=== PATIENT | female | born 1975 | race Caucasian/White ===

== ENCOUNTER 2023-11-19 16:32 | Inpatient (IN) | payer BC, SELFPAY ==
[2023-11-19] VITALS (26 sets, daily range): BP systolic 114–172; BP diastolic 57–102; BMI 28.8; BMI 32.8
--- NOTE | 2023-11-19 11:29 | ED.GENMED ---
History of Present Illness
General
Chief Complaint: Chest Problem
Source: patient
Exam Limitations: none
Time Seen by Provider: 11/19/23 11:20
Travel History
Have you had any contact with someone who has COVID-19?: No
Do you have any symptoms of coronavirus? Fever > 100 degrees, chills, cough, shortness of breath, sore throat, loss of taste or smell, muscle aches, or headache?: No
History of Present Illness
History of Present Illness:
See MDM
Past History
Past History
ED Past Medical History: Asthma and GERD
ED Past Surgical History: None
Social History
Tobacco: Non-smoker
Personal:
Living: with family
Family History
Family History: Negative Early CAD
Phy Exam
Physical Exam
Physical Exam:
See MDM
Course
Orders/Labs/Results
Orders:
Orders
11/19/23 10:15
ECG [Electrocardiogram (*1)] Urgent
Reason for Study: Chest Pain
EKG- Treatment ONCE
11/19/23 11:28
Prednisone [Deltasone] 50 mg PO NOW STA
CR Chest - 2 Views Urgent
Comment:
Reason For Exam: SOB, cough, Wheeze
11/19/23 12:18
Complete Blood Count/With Diff Urgent
Comprehensive Metabolic Panel Urgent
Glycohemoglobin (HgbA1c) Urgent
HCG, Serum Qualitative Screen Urgent
Comment: ADD ON
Troponin I Urgent
11/19/23 13:34
Aspirin Chewable [Low Strength Aspirin] 324 mg PO NOW STA
Nitroglycerin Sublingual [Nitrostat (Sublingual)] 0.4 mg SL [id number] PRN
11/19/23 13:50
Heparin 4,000 units IV NOW STA
11/19/23 13:54
Echo 2D MMode Color/Doppler Urgent
Reason for Study: CP
11/19/23 13:56
PTT Urgent
Comment: Obtain baseline before beginning heparin infusion if not already collected
11/19/23 14:00
Heparin 52980 Units/250 ml 25,000 units in 250 ml IV PER PROTOCOL
Weight to be used for heparin protocol in kilograms (kg):: 88.451
Protocol:: Cardiac Tx/Acute Coronary
PTT Goal Range to be used:: PTT 73 to 111 seconds
Order type:: Initial
INITIAL Infusion Dose (UNITS/KG/hr) & then follow protocol:: 15 units/kg/hr
Infusion Dose in UNITS/hr & then follow protocol (UNITS/hr):: 1,350
INFUSION RATE in mL/hr & then follow protocol (mL/hr):: 13.5
PTT less than or equal to 64 seconds:: Increase rate by 200 units/hr (+ 2 mL/hr)
PTT 64.1 to 72.9 seconds:: Increase rate by 100 units/hr (+ 1 mL/hr)
PTT 73 to 111 seconds:: Target Range. No change in rate.
PTT 111.1 to 130.9 seconds:: Decrease rate by 100 units/hr (- 1 mL/hr)
PTT 131 to 199.9 seconds:: HOLD for 1 hr. Then decrease rate by 200 units/hr (- 2 mL/hr)
PTT greater than or equal to 200 seconds:: HOLD for 2 hrs & Notify Provider. Then decrease by 200 units/hr (-
2 mL/hr)
Lab follow-up:: Each change, PTT q6h until 2 consecutive are therapeutic. Then PTT
daily.
11/19/23 Dinner
Cholesterol Lowering
At Your Request: Full Participation
Cholesterol Lowering: Sodium, 2 Gram
11/19/23 15:22
Troponin I Urgent
11/19/23 15:42
DH LUMASON 5mL Routine
11/19/23 15:57
Verapamil Injectable [Isoptin/Verapamil Injection] 5 mg .ROUTE .STK-MED ONE
11/19/23 15:58
Heparin 1000 Units/500 ml [Heparin] 1,000 units in 500 ml .ROUTE .STK-MED
Heparin Sodium,Porcine/Ns/Pf [Heparin 2000 Units/1000 ml] 2,000 unit in 1,000 ml .ROUTE .STK-MED
Lidocaine HCl/Pf [Xylocaine-Mpf 1% Vial] 100 mg .ROUTE .STK-MED ONE
Nitroglycerin [Tridil] 1,500 mcg .ROUTE .STK-MED ONE
11/19/23 15:59
Admit/Transfer Patient As Directed
Co-Sign Provider:
Level of Care: Inpatient admission
Assign to:: IVU
Physician / Group: alexa
Diagnosis: NSTEMI
Reason for Hospitalization: NSTEMI
Expected length of stay greater than two midnights?: Yes
ELOS- Estimated Length of Stay in days: 4
I certify the patient meets the requirements for IP care: Yes
11/19/23 16:01
Code Status As Directed
Resuscitation Status: Full Code
11/19/23 16:22
Fentanyl Citrate/Pf [Sublimaze] 100 mcg .ROUTE .STK-MED ONE
Heparin 10,000 units .ROUTE .STK-MED ONE
Midazolam HCl [Versed] 2 mg .ROUTE .STK-MED ONE
Ondansetron Injectable [Zofran] 4 mg .ROUTE .STK-MED ONE
11/19/23 17:39
Albuterol [ProAIR HFA INHALER] 2 puff INH R Q4HPRN PRN
11/19/23 17:39
Heparin Protocol- PTT Orders As Directed
PTT per Heparin protocol: -Obtain CBC and baseline PTT - if not already collected.
-Obtain PTT 6 hours from start of infusion. Then, every 6 hours until 2 consecutive
PTT's are therapeutic. Then, PTT Daily.
-With each rate change, obtain PTT every 6 hours until 2 consecutive PTT's are
therapeutic. Then, PTT Daily.
Activity As Directed
Activity Level: Bedrest
INT (Intravenous Needle Therapy) As Directed
Comment: maintain peripheral IV access
Intake/ Output As Directed
Frequency: Per unit guidelines
Notify MD As Directed
Notify physician if: PTT is greater than or equal to 200.
Vital Signs As Directed
Frequency: q4h
Weight As Directed
Frequency: Weekly
11/19/23 18:00
Atorvastatin [Lipitor] 40 mg PO QPM
11/19/23 20:00
Metoprolol [Lopressor] 12.5 mg PO BID
11/20/23 05:49
Basic Metabolic Panel IN AM
Cardiovascular Evaluation IN AM
Complete Blood Count/With Diff IN AM
Troponin I IN AM
11/21/23 06:00
Complete Blood Count/No Diff Q2D
Comment: notify provider: Platelet count < 130,000 or decrease by 50% from baseline
11/23/23 06:00
Complete Blood Count/No Diff Q2D
Comment: notify provider: Platelet count < 130,000 or decrease by 50% from baseline
11/25/23 06:00
Complete Blood Count/No Diff Q2D
Comment: notify provider: Platelet count < 130,000 or decrease by 50% from baseline
11/27/23 06:00
Complete Blood Count/No Diff Q2D
Comment: notify provider: Platelet count < 130,000 or decrease by 50% from baseline
11/29/23 06:00
Complete Blood Count/No Diff Q2D
Comment: notify provider: Platelet count < 130,000 or decrease by 50% from baseline
12/01/23 06:00
Complete Blood Count/No Diff Q2D
Comment: notify provider: Platelet count < 130,000 or decrease by 50% from baseline
12/03/23 06:00
Complete Blood Count/No Diff Q2D
Comment: notify provider: Platelet count < 130,000 or decrease by 50% from baseline
12/05/23 06:00
Complete Blood Count/No Diff Q2D
Comment: notify provider: Platelet count < 130,000 or decrease by 50% from baseline
Abnormal Lab Results
11/19/23 11/19/23
12:18 15:22
Glucose 102 H mg/dl
(70-99)
Hemoglobin A1c 6.1 H %
(4.0-5.6)
Troponin I 0.713 H* ng/ml 0.603 H* ng/ml
11/19/23 12:18
11/19/23 12:18
Vital Signs
Initial and Last Documented VS:
Initial Vital Signs
Temp Pulse Resp BP Pulse Ox
98.2 F 98 20 172/99 100
11/19/23 10:10 11/19/23 10:10 11/19/23 10:10 11/19/23 10:10 11/19/23 10:10
Last Documented Vital Signs
Temp Pulse Resp BP Pulse Ox
98.0 F 89 15 144/66 98
11/20/23 12:03 11/20/23 12:00 11/20/23 08:45 11/20/23 08:39 11/20/23 08:15
MDM/Problems Addressed
Differential Diagnosis Includes:
HPI and MDM Narrative:
48-year-old female presenting with shortness of breath and cough. She is developing a central chest pain. Patient states it felt like a panic attack but she has never had pain this severe. Her child is getting over a viral illness with cough.
She is using her albuterol more frequently.
On evaluation, she is well-appearing nontoxic. Lungs are clear but there is evidence of a bronchospastic cough. Will start prednisone. Will obtain chest x-ray. Given exertional component, will obtain 1 troponin
Physical exam
General: Well appearing and non-toxic
HEENT: protecting airway
Neck: appears supple
CV: No evidence of cyanosis. Regular rate and rhythm
Resp: No accessory muscle use. Lungs clear. Bronchospastic cough
Abd: Non-distended
Extremities: No deformities. No leg edema
Neuro: alert
Psych: Normal affect
Skin: Intact
Problems Addressed including Acute and Chronic Conditions affecting care:
1. Bronchospastic cough
Acuity: acute
Prognosis: stable
Details: Will start prednisone and obtain chest x-ray
2. Chest pain
Acuity: acute
Prognosis: stable
Details: Will obtain troponin
Updates
Chest x-ray clear. At this time, troponin came back elevated at 0.7. Patient given aspirin and nitroglycerin. The chest discomfort is resolving with nitroglycerin. Given her exertional shortness of breath and elevated troponin, will start
heparin.
Cardiology will evaluate.
Differential Diagnosis (but not limited to): Costochondritis, bronchospasm, bronchitis, ACS
Testing considered: D-dimer but she is neither tachycardic nor hypoxic. No leg edema
Drug therapy (if applicable): OTC meds, please see d/c instruction regarding Rx drugs
2 PM Case rediscussed with cardiology after he evaluated the patient. Cardiology will perform echo and make the decision of emergent cardiac catheterization based on results.
Amount and/or Complexity of Data Reviewed
Clinical info obtained from: Patient
External data reviewed: N/A
Labs I independently reviewed (but not limited to): Elevated troponin
Radiology: X-ray independently reviewed: Chest x-ray clear
Pulse Ox: not hypoxic
EKG independently reviewed: Sinus rhythm, normal axis, no STEMI
Services Advisor: sinus rhythm
Critical Care: The high probability of a clinically significant, sudden or life threatening deterioration of the cardiovascular system(s) required my full and direct attention, intervention and personal management. The aggregate critical care time
was 33 minutes. This time is in addition to time spent performing reported procedures but includes the following:
[x] Data Review and interpretation
[x] Patient assessment and monitoring of vital signs
[x] Documentation
[x] Medication orders and management
Risk of Complication:
Social Determinants of health: Good social support
Discussed with other providers: Cardiology
Escalation of Care includes Admit/Obs: Given the elevated troponin and chest discomfort, patient requires admission
Occasional wrong word or 'sound a like' substitutions may have occurred due to the inherent limitations of voice recognition software. Read the chart carefully and recognize, using context, where substitutions have occurred.
*Critical Care Note
Total Time (30-74mins, 75-104mins- exclusive of procedures): 33 min
ED Attending Note
-
Portions of this chart may have been created with voice recognition software.� Occasional wrong word or��sound alike� substitutions may have occurred due to the inherent limitations of voice recognition software.
Discharge Plan
Departure
Patient Disposition: Admit
Date of Disposition: 11/19/23
Time of Disposition: 14:16
Admit to: Telemetry
Presentation/result/management discussed w/ accepting MD/DO: Delivery Tech
Discharge Problem:
REYES (dyspnea on exertion)
Interventions
Interventions:
*General Assessment Last Done: 11/19/23 11:43
*Neglect/Abuse Screening Last Done: 11/19/23 11:42
ED- Fall Risk Assessment Last Done: 11/19/23 11:43
*Nursing Disposition Last Done: 11/19/23 16:27
ED- Cardiac Assessment Last Done: 11/19/23 11:46
ED- Pulmonary Assessment Last Done: 11/19/23 11:46
Discharge Date and Time
Discharge Date/Time: 11/19/23 16:28
[2023-11-19] MEDS: DELTASONE 50 MG PO (11:39)
[2023-11-19 12:48] LABS: % Basophils 0.3 % (0-2); % Eosinophils 0.6 % (0-6); % Immature Granulocytes 0.3 % (0-0.5); % Monocytes 5.6 % (1.7-9.3); % Neutrophils 54.2 % (42.2-75.2); Absolute Lymphocytes 2.8 10^3/uL (1.2-3.4); Absolute Monocytes 0.4 10^3/uL (0.1-0.6); Absolute Neutrophils 3.9 10^3/uL (1.4-6.5); Hematocrit 37.3 % (37.0-47.0); Hemoglobin 12.9 g/dL (12.0-16.0); Mean Corp Hgb Conc. 34.6 g/dL (33.0-37.0); Mean Corpuscular Hgb 29.3 pg (27.0-31.0); Mean Corpuscular Volume 84.6 fL (81.0-99.0); Mean Platelet Volume 9.6 fL (7.4-10.4); Nucleated Red Blood Cells % 0 %; Platelet Count 329 10^3/uL (130-400); Red Blood Cell Count 4.41 10^6/uL (4.20-5.40); Red Cell Dist. Width 12.7 % (11.5-14.5); White Blood Cell Count 7.3 10^3/uL (4.8-10.8)
[2023-11-19 13:06] LABS: ALT (SGPT) 24 U/L (0-35); AST (SGOT) 28 U/L (14-36); Albumin 4.3 g/dl (3.5-5.0); Alkaline Phosphatase 100 U/L (38-126); Blood Urea Nitrogen 11 mg/dl (7-17); Calcium 9.6 mg/dl (8.4-10.2); Carbon Dioxide 27 mmol/L (22-30); Chloride 101 mmol/L (98-107); Estimated Creatinine Clearance > 125 ml/min; Glucose 102 mg/dl (70-99); Sodium 136 mmol/L (135-145); Total Bilirubin 0.5 mg/dl (0.2-1.3); Total Protein 7.5 g/dl (6.3-8.2); eGFR > 60.00
[2023-11-19 13:22] LABS: Troponin I 0.713 ng/ml
[2023-11-19 13:38] LABS: Potassium 4.4 mmol/L (3.5-5.1)
[2023-11-19] MEDS: NITROSTAT (SUBLINGUAL) 0.400000000000000022 MG SL ×3 (13:38→21:06)
[2023-11-19] MEDS: LOW STRENGTH ASPIRIN 324 MG PO (13:38)
--- NOTE | 2023-11-19 14:12 | W.PN.CD ---
Today's Communication / Plan
-
.
Impression / Plan
-
Impression: 48F with CP and abnormal troponin. Several days of chest discomfort that is worse with laying flat/left side and better sitting up. But relieved with SL NTG. Finally, she has been under an extraordinary amount of stress and having
'daily' panic attacks for two weeks. EKG is nonspecific
Plan:
CP
- Interesting story with features concerning for pericarditis (positional), Takotsubo (stress) or just obstructive CAD. Her symptoms, however, don't neatly match any of these diagnoses - for example, the EKG is not consistent with pericarditis or
Takotsubo.
- Urgent echocardiogram now
- Treat as ACS (ASA, UFH, statin) until proven otherwise
- Noncardiac causes of chest pain and troponin are possible but seem unlikely. There is no hypoxia or tachycardia to suggest PE. The time course and pain are not typical for acute aortic event
- She may require LHC
- check lipid panel
Asthma
GERD
Subjective: Dictated
Physical Exam
Vital Signs/Labs
Vital Signs
Temp Pulse Resp BP Pulse Ox
36.8 C 96 30 155/90 99
11/19/23 10:10 11/19/23 13:30 11/19/23 13:30 11/19/23 13:00 11/19/23 13:30
11/18/23 11/19/23 11/20/23
06:59 06:59 06:59
Actual Weight 195 lb
11/19/23 12:18
11/19/23 12:18
LAB Results
11/19/23
12:18
Troponin I 0.713 H*
Data Reviewed
-
Date of Service: November 19, 2023
[2023-11-19 14:26] LABS: APTT 28.7 Sec (23.4-35.0)
[2023-11-19] MEDS: HEPARIN 25000 UNITS/250 ML IV ×2 (14:32→23:37)
[2023-11-19] MEDS: HEPARIN 4000 UNITS IV (14:39)
[2023-11-19 15:58] LABS: Troponin I 0.603 ng/ml
[2023-11-19 17:01] LABS: HCG, Serum Qualitative Screen Negative
--- NOTE | 2023-11-19 17:34 | CONSULT.CT ---
Addendum entered and electronically signed by Félix Powell MD 11/20/23 16:06:
I saw and examined the patient.
The PA's note was reviewed and I agree with the note.
Comment:
CARDIAC SURGERY ATTENDING:
I have personally reviewed this patient's case and available imaging. I spoke w/ Mrs. Rush and her at her bedside this afternoon. Her mother was present via speaker phone. We discussed her coronary pathology and the various treatment
options available. In particular, I discussed what surgical intervention and recovery would involve. We discussed that surgery would offer no survival advantage over PCI/stenting, but would potentially result in less future interventions than
PCI/stenting. We discussed the natural history of CAD. I also discussed that the potential for future surgical intervention, if necessary, would not be compromised should she chose PCI/stenting at present. All questions were answered to the best
of my abilities. The patient would like to proceed with PCI/stenting. I shared her decision with my interventional cardiology colleagues.
Thank you for the opportunity to participate in the care of this patient.
Call with any questions or concerns.
Félix Powell M.D.
[phone]
Original Note:
Consultation
-
Date/Time Consultation Requested: 11/19/23 1709
Date/Time Consultation Performed: 11/19/23 1535
Requesting Provider: Dominic DUQUE
Performing Provider: Michael Rebolledo Md
Reason for Consultation: CT surgery Eval.
Patient History
Physicians
Family Physician: Mell Ponce
Outpatient Electronics Engineering Manager: Bunny Reid
Inpatient Electronics Engineering Manager: Bunny Reid
History of Present Illness
48-year-old female with past medical history of presented to [facility] on 11/18 with shortness of breath and cough for several days. however, she c/o severeal panic attacks that maybe have been cardiac episodes as she reflects on her
symptoms. She then complained of developing central chest pain and stated that it felt like a panic attack but has never had pain this severe. The CP would radiate to the jaw/teeth, and eyes She does complain of recent sick exposure from her child
and extra stress. 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 Troponins were obtained while in the ER and they were elevated at 0.7. She was given aspirin and nitro and was started on a heparin drip. An echocardiogram was performed which showed a
LVEF of 55-60% with mild hypokinesis of the mid to apical anteroseptal pillai and mid inferior septal wall. She was then taken to the cardiac Video Effects Editor in which multivessel disease was found and CT surgery was consulted.
Past Medical History
Past Medical History: Asthma and GERD
anxiety
Past Surgical History
D+E termination
Breast lift/ excess skin removal
Dental History
crowns
Family History
Family Medical History: CAD and Other (afib)
Social History
Alcohol: Occasional
Drug: Marijuana (daily)
Tobacco: Former Smoker (quit 20 years ago)
Personal:
Living: With Spouse
Employment: Employed
Allergies
Allergy/AdvReac Type Severity Reaction Status Date / Time
aspirin Allergy Pharmacy Verified 11/19/23 10:15
to Review
fluticasone propionate Allergy Unknown Verified 11/19/23 10:15
[From Advair Diskus]
salmeterol xinafoate Allergy Unknown Verified 11/19/23 10:15
[From Advair Diskus]
Home Medications
�Medication �Instructions �Recorded �Confirmed �Type
Medical Marijuana 1 gummy PO HSPRN PRN anxiety 11/19/23 11/19/23 History
Medical Marijuana 20 inh inhalation QPMPRN PRN 11/19/23 11/19/23 History
anxiety
albuterol sulfate 90 mcg/actuation 2 puff inhalation R Q4HPRN PRN 11/19/23 11/19/23 History
aerosol inhaler sob/wheezing
ibuprofen 200 mg tablet (Motrin IB) 400 mg PO DAILYPRN PRN mild pain 11/19/23 11/19/23 History
tetrahydrozoline 0.05 % eye drops 1 - 2 drp BOTH EYES DAILYPRN PRN 11/19/23 11/19/23 History
(Visine) dry eyes
Review of Systems
-
History Source: Patient
General: Reports Fatigue
Respiratory: Reports SOB and Asthma
Cardiac: Reports Chest Pain and CAD
Abdomen/GI: Reports Abdominal Pain
: Reports No Symptoms
Musculoskeletal: Reports No Symptoms
Skin: Reports No Symptoms
Neurological: Reports Headaches
Vascular: Reports No Symptoms
Physical Exam
Vital Signs
Temp 98.2 F 11/19/23 10:10
Temp route: Oral 11/19/23 10:10
Pulse 95 11/19/23 17:19
Resp Rate 17 11/19/23 17:19
Blood pressure 141/73 11/19/23 17:19
Blood pressure extremity used: Left forearm 11/19/23 17:19
Position: Sitting 11/19/23 17:19
MAP (cuff-Gabby Monitor) 101 11/19/23 15:18
SaO2 98 11/19/23 17:19
Oxygen Mode of Delivery Room air 11/19/23 17:19
Acceptable pain level during hospitalization? 0 11/19/23 10:10
Can the patient verbally communicate their pain? Yes 11/19/23 17:19
Pain scale ratin 11/19/23 10:10
Actual Weight 88.451 kg 11/19/23 11:43
Body Mass Index (BMI) 28.8 11/19/23 11:43
Labs
11/19/23 12:18
11/19/23 12:18
APTT Cancelled 11/19/23 20:45
Troponin I 0.603 ng/ml H* 11/19/23 15:22
Exam
General: Well Developed and Well Nourished
HEENT: Normocephalic
Respiratory: Clear
Cardiac: S1/S2 and Regular Rhythm
GI: Soft
Rectal: Deferred by Provider
Skin: Warm and Dry
Neuro: AO x 3
Lymph: No Lymphadenopathy
Psych: Other (anxious)
Assessment / Plan
-
48-year-old female with past medical history listed above presented to [place]' emergency room with chest pain, shortness of breath and cough. She ruled in for an NSTEMI and was taken to the Cardiac Video Effects [facility] where a coronary vessel disease was
found. Therefore CT surgery was consulted for surgical evaluation.
#CAD
-Patient's case will be discussed with attending physician. Further details regarding surgical timing intervention will be determined after attending physicians full evaluation.
-Routine preoperative cardiothoracic surgery orders will be initiatedonce a surgical plan is developed
-STS risk stratification score will be calculated after preoperative testing is complete
-Continue heparin gtt per cardiology
#anxiety
- takes medical marijuana daily
- would start valium or ativan po
--- NOTE | 2023-11-19 18:00 | PTCARENOTE ---
Rec'd pt from labor contractor via stretcher at 1750- Rec'd pt awake alert and oriented. Sl tearful and admitted she was overwhelmed with the events of today. Admits to having significant underlying anxiety and normally takes medical marijuana- a
combination of THC and CBD mix to help her sleep. States she feels as if she has been 'off' for a few weeks but it got really bad last night with shortness of breath and chest discomfort. Currently denies pain or shortness of breath. Lungs are
clear. Monitor SR. + pulses. No edema. VS as documented. ABd is round and soft with + BS. Denies nausea. Denies need to void currently. Pt has her menses. Tampon in place. L arm IV site -NSS hung at 133 mls/hr to run over 3 hrs. Pt with R radial TR
band- rec'd pt with 9 mls in the band. Site wnl. Good CMS checks to distal extrem. No swelling, drainage, or hematoma. Per labor contractor band placed at 1700. per orders at 1800 3 mls taken out-site remains wnl. Complete CHG bath given. Repositioned.
at the bedside.
[2023-11-19] MEDS: IMDUR (EXTENDED RELEASE) 30 MG PO (18:13)
[2023-11-19] MEDS: NSS 1000 IV (18:13)
[2023-11-19] MEDS: LIPITOR 40 MG PO (18:13)
--- NOTE | 2023-11-19 18:19 | ITS.CL.CATH ---
Crew Boss - Catheterization
Cardiac Catheterization
Procedure Report:
LEFT HEART CATHETERIZATION
Date of Procedure: November 19, 2023
Referring: Bunny Reid
PROCEDURES:
1. Left heart catheterization, coronary angiogram.
2. Ultrasound-guided access
INDICATION: NSTEMI
ACCESS: Right radial artery, 6 Tamazight sheath, under ultrasound guidance
HEMODYNAMICS : (mmHg)
AO (s/d) : 121/80
LV (s/d) : 129/5
LVEDP : 8
CORONARY FINDINGS
DOMINANCE: Right
LEFT MAIN: The left main artery is a large-caliber vessel which gives rise to the left anterior descending artery and the left circumflex artery. There is minimal luminal irregularities.
LEFT ANTERIOR DESCENDING: The left anterior descending artery is a medium to large caliber vessel which gives rise to 1 major diagonal branch. There are 2 tandem lesions in the mid LAD, first 70% proximally and a 80 to 85% more distally. There is
also an area of tubular diffuse up to 70% stenosis in the distal LAD. Proximal portion of the diagonal branch also has a 70 to 75% smooth stenosis.
CIRCUMFLEX: The left circumflex artery is a medium caliber vessel which gives rise to 2 major obtuse marginal branches. OM1 is a small caliber vessel with smooth 40 to 50% stenosis in the proximal portion. Otherwise there is minimal luminal
irregularities.
RIGHT CORONARY ARTERY: The right coronary artery is a large-caliber, dominant vessel which gives rise to the right posterior descending artery and the right posterolateral system. There is a 50% stenosis in a small caliber distal RPL branch.
Otherwise there is minimal luminal irregularities.
SEDATION: 36 minutes of procedural sedation was utilized. An independent medical sales specialist was present to assist with and help manage the patient's level of consciousness and physiologic status.
RADIATION SUMMARY: Fluoro Time (min): 2.5, Dose (mGy): 271.1, DAP (Gy.cm2) : 19.1
Closure Device: Vascular band over right radial artery, 10 cc of air
CONCLUSIONS
1. Two tandem lesions in the mid LAD, first 70% proximally and a 80 to 85% more distally. There is also an area of tubular diffuse up to 70% stenosis in the distal LAD. Proximal portion of the diagonal branch also has a 70 to 75% smooth stenosis.
2. OM1 is a small caliber vessel with smooth 40 to 50% stenosis in the proximal portion.
3. There is a 60 to 70% stenosis and a small caliber distal RPL branch.
4. Normal LVEDP
RECOMMENDATIONS
1. Wean radial band per protocol.
2. Goal-directed medical therapy for underlying NSTEMI and coronary artery disease.
3. Full echocardiogram to assess biventricular function.
4. Given multiple lesions are present in the LAD as well as in the diagonal branch, we will stop to obtain a CT surgery consult and take a heart team approach in regards to consideration for medical therapy and PCI versus two-vessel CABG.
Discussed extensively with patient and her .
5. Aggressive management of cardiovascular risk factors.
Copy to: Bunny Reid
Charlene Champion MD, FACC, [facility]
--- NOTE | 2023-11-19 19:02 | PTCARENOTE ---
Nellie from Cardiac Surgery in to speak with pt. Pt is anxious. Order obtained for prn Ativan. R radial site wnl. VS as documented.
[2023-11-19] MEDS: ATIVAN 1 MG PO (19:18)
--- NOTE | 2023-11-19 19:45 | PTCARENOTE ---
Air out of Radial band since 180. Currently Radial band taken off -site is tender per pt but no swelling or drainage. No hematoma. Good CMS Checks. 4x4 and tegaderm applied. Pt then assisted oob to the bathroom to void and change her tampon. 1918
Pt medicated with Ativan 1 mg IV for anxiety. Will continue to monitor. Pt given frequent explanations of plan of care as she is anxious and worried. Tearful earlier. Support given. at the bedside.
--- NOTE | 2023-11-19 19:50 | PTCARENOTE ---
Air out of Radial band since 190. Currently Radial band taken off -site is tender per pt but no swelling or drainage. No hematoma. Good CMS Checks. 4x4 and tegaderm applied. Pt then assisted oob to the bathroom to void and change her tampon. 191
Pt medicated with Ativan 1 mg IV for anxiety. Will continue to monitor. Pt given frequent explanations of plan of care as she is anxious and worried. Tearful earlier. Support given. at the bedside.
--- NOTE | 2023-11-19 20:00 | PTCARENOTE ---
rec`d pt at 1900 AAOx3 in bed. vascular checks continued. Rt radial band taken off at shift change with previous RN. pressure held and covered with gauze and Tegaderm. left FA 22 running with NS at 133mL/hr. SR on monitor. HRs 80s to 90s. afebrile.
+pulses. mo edema. lungs clear, room air. satting at 97%. POX on rt thumb. no BM. +BS. pt voids in toilet by self. pt voided 400cc. call [place]field in reach, family at bedside. safe environment maintained.
[2023-11-19] MEDS: LOPRESSOR 12.5 MG PO (20:08)
[2023-11-19] MEDS: MORPHINE SULFATE 2 MG IV (22:30)
[2023-11-19 23:18] LABS: Hematocrit 32.3 % (37.0-47.0); Hemoglobin 11.6 g/dL (12.0-16.0); Mean Corp Hgb Conc. 35.9 g/dL (33.0-37.0); Mean Corpuscular Hgb 29.4 pg (27.0-31.0); Mean Platelet Volume 9.7 fL (7.4-10.4); Platelet Count 310 10^3/uL (130-400); Red Blood Cell Count 3.94 10^6/uL (4.20-5.40); Red Cell Dist. Width 12.5 % (11.5-14.5); White Blood Cell Count 10.4 10^3/uL (4.8-10.8)
[2023-11-19 23:29] LABS: APTT 27.8 Sec (23.4-35.0)
[2023-11-20] VITALS (27 sets, daily range): BP systolic 105–160; BP diastolic 31–81; BMI 33.0
--- NOTE | 2023-11-20 | PTCARENOTE ---
pt reassessed. no changes in pt assessment. Heparin gtt started at 2330 per orders. follow up PTT ordered. call [place]field in reach.
[2023-11-20 05:59] LABS: % Basophils 0.2 % (0-2); % Eosinophils 0.1 % (0-6); % Immature Granulocytes 0.3 % (0-0.5); % Lymphocytes 30.6 % (20.5-51.1); % Monocytes 5.1 % (1.7-9.3); % Neutrophils 63.7 % (42.2-75.2); Absolute Lymphocytes 4.1 10^3/uL (1.2-3.4); Absolute Monocytes 0.7 10^3/uL (0.1-0.6); Absolute Neutrophils 8.6 10^3/uL (1.4-6.5); Hematocrit 36.7 % (37.0-47.0); Hemoglobin 12.3 g/dL (12.0-16.0); Mean Corp Hgb Conc. 33.5 g/dL (33.0-37.0); Mean Corpuscular Hgb 28.9 pg (27.0-31.0); Mean Corpuscular Volume 86.2 fL (81.0-99.0); Mean Platelet Volume 9.6 fL (7.4-10.4); Nucleated Red Blood Cells % 0 %; Platelet Count 351 10^3/uL (130-400); Red Blood Cell Count 4.26 10^6/uL (4.20-5.40); Red Cell Dist. Width 12.7 % (11.5-14.5); White Blood Cell Count 13.5 10^3/uL (4.8-10.8)
[2023-11-20 06:24] LABS: Troponin I 0.376 ng/ml
[2023-11-20 06:34] LABS: Blood Urea Nitrogen 10 mg/dl (7-17); Calcium 9.7 mg/dl (8.4-10.2); Carbon Dioxide 23 mmol/L (22-30); Chloride 102 mmol/L (98-107); Estimated Creatinine Clearance > 125 ml/min; Glucose 105 mg/dl (70-99); HDL Cholesterol 52 mg/dl; LDL Cholesterol, Calculated 98 mg/dl; Potassium 4.3 mmol/L (3.5-5.1); Sodium 136 mmol/L (135-145); Total Cholesterol 180 mg/dl (50-199); Triglyceride 154 mg/dl (10-149); Very Low Density Lipoprotein 30 mg/dl (0-30); eGFR > 60.00
[2023-11-20] MEDS: LOPRESSOR 12.5 MG PO (07:39)
[2023-11-20] MEDS: IMDUR (EXTENDED RELEASE) 30 MG PO (07:39)
[2023-11-20] MEDS: TYLENOL 650 MG PO ×2 (07:44→15:20)
--- NOTE | 2023-11-20 07:55 | W.PN.CD ---
Today's Communication / Plan
-
PCI vs CABG TBD today
Impression / Plan
-
Impression: 48F with NSTEMI secondary to complex LAD/Diagonal disease
Plan:
NSTEMI
- ASA/UFH
- Statin
- D/w with interventional cardiology and CT Surgery - either option reasonable, but neither would offer mortality benefit over the other. CABG is more durable but tougher procedure.
- She is leaning toward PCI but would like to speak with Dr. Powell
Anxiety - add benzodiazepine
Asthma
GERD
Subjective: bilateral mild CP without palps or dyspnea
Physical Exam
Vital Signs/Labs
Vital Signs
Temp Pulse Resp BP Pulse Ox
36.7 C 80 11 155/70 99
11/19/23 22:55 11/20/23 07:39 11/20/23 06:00 11/20/23 07:39 11/20/23 06:00
11/19/23 11/20/23 11/21/23
06:59 06:59 06:59
Actual Weight 223 lb 1.725 oz
11/20/23 05:49
11/20/23 05:49
APTT 42.0 Sec (23.4-35.0) H 11/20/23 05:49
Triglycerides 154 mg/dl (10-149) H 11/20/23 05:49
LDL Cholesterol, Calc 98 mg/dl 11/20/23 05:49
VLDL Cholesterol, Calc 30 mg/dl (0-30) 11/20/23 05:49
HDL Cholesterol 52 mg/dl 11/20/23 05:49
LAB Results
11/19/23 11/19/23 11/20/23
12:18 15:22 05:49
Troponin I 0.713 H* 0.603 H* 0.376 H*
Physical Exam
Constitutional: No acute distress
EENT: Anicteric and Moist mucous membranes
Cardiovascular: Rhythm & rate is regular, JVD pressure is normal, Systolic murmur absent and Diastolic murmur absent
Respiratory: Respiratory effort normal
GI: Soft, Distention absent, Non tender and Normal bowel sounds
Neuro/Psych: Alert
Other: Cath Site (C/D/I)
Data Reviewed
-
Date of Service: November 20, 2023
EKG: Other (Tele OK)
[2023-11-20] MEDS: ATIVAN 1 MG PO ×2 (08:21→16:01)
[2023-11-20] MEDS: LOW STRENGTH ASPIRIN 81 MG PO (08:21)
[2023-11-20 08:49] LABS: Glycohemoglobin (HgbA1c) 6.1 % (4.0-5.6)
--- NOTE | 2023-11-20 08:52 | PTCARENOTE ---
pt is awake and alert , pt NSR on monitor , hypertensive 157/75, on room air with 02 sat of 99% , S1 & S2 heart tones , lungs clear , abdomen soft non tender, johan urine , pt states she has her menses, on heparin gtt , she is not therapeutic as of
now , PTT due at 12:00 , she is anxious and unable to rest in bed , pt has a history of anxiety and uses marijuana for her anxiety , Dr Reid here and aware pt was given 1mg po lorazepam , she also has been complains of headache with pain
radiating down her neck 7-8 on scale of 1-10 , she was given Tylenol , her is at bedside and both were updated on current plan of care and condition
--- NOTE | 2023-11-20 10:43 | CM ---
CM following re: discharge planning.
Discussed in Rounds, reviewed pt's chart, met with pt and pt's [place] at bedside.
Pt is a 48 year old female, admitted with primary dx of NSTEMI.
Pt reports she lives with in a 2SH, 2 steps to enter, has supportive son and 3 stepchildren. Pt described herself as independent in all areas [employer], drives, works.
PCP: [facility]
Pharmacy: [facility]
D/C plan: home with anticipated no needs. to transport at discharge.
CM will follow with discharge plan updates as hospitalization progresses
--- NOTE | 2023-11-20 10:44 | PTCARENOTE ---
pt spoke with and family re options and she is agreeable to having a stent placement , Dr Reid notified
[2023-11-20] MEDS: EFFIENT 60 MG PO (10:48)
--- NOTE | 2023-11-20 12:09 | PTCARENOTE ---
pt sent to [facility] programmer , pt report given to [facility] programmer RN , pt and updated on plan of care
--- NOTE | 2023-11-20 12:26 | ITS.CL.CATH ---
[employer] - Catheterization
Cardiac Catheterization
Procedure Report:
LEFT HEART CATHETERIZATION--CORONARY INTERVENTION
Date of Procedure: November 20, 2023
Referring: Bunny Reid MD
PROCEDURES:
1. Selective left coronary angiogram.
2. Ultrasound-guided access.
3. Successful percutaneous coronary artery intervention of 2 tandem lesions in the mid LAD (70% proximally and 80 to 85% distally) and an area of tubular diffuse up to 70% stenosis in the mid to distal LAD with 2 separate 2.75 x 28 mm Xience bhanu
point drug-eluting stent in the mid LAD and a 2.25 x 28 mm Xience bhanu point drug-eluting stent in the mid to distal LAD with IVUS guided postdilatation with a 2.75 x 20 mm and 2.5 x 20 mm NC balloons at high pressures with excellent angiographic
result.
4. Successful percutaneous coronary artery intervention of 70% stenosis in the proximal diagonal 1 with a 2.25 x 12 mm Xience bhanu point drug-eluting stent, postdilated with a 2.25 x 12 mm NC trek balloon at 18 noelle with an excellent angiographic
result.
5. Intravascular ultrasound (IVUS).
INDICATION: NSTEMI with serial lesions in the LAD and diagonal branch. Patient was evaluated by CT surgery and after a heart team discussion and shared decision making, patient decided to proceed with percutaneous coronary intervention.
ACCESS: Right radial artery, 6 Setswana sheath, under ultrasound-guided
HEMODYNAMICS : (mmHg)
AO (s/d) : 126/74
CORONARY FINDINGS
DOMINANCE: Right
LEFT MAIN: The left main artery is a large-caliber vessel which gives rise to the left anterior descending artery and the left circumflex artery. There is minimal luminal irregularities.
LEFT ANTERIOR DESCENDING: The left anterior descending artery is a medium to large caliber vessel which gives rise to 1 major diagonal branch. There are 2 tandem lesions in the mid LAD, first 70% proximally and a 80 to 85% more distally. There is
also an area of tubular diffuse up to 70% stenosis in the distal LAD. Proximal portion of the diagonal branch also has a 70 to 75% smooth stenosis.
CIRCUMFLEX: The left circumflex artery is a medium caliber vessel which gives rise to 2 major obtuse marginal branches. OM1 is a small caliber vessel with smooth 40 to 50% stenosis in the proximal portion. Otherwise there is minimal luminal
irregularities.
RIGHT CORONARY ARTERY: The right coronary artery is a large-caliber, dominant vessel which gives rise to the right posterior descending artery and the right posterolateral system. There is a 60 to 70% stenosis and a small caliber distal RPL branch.
Otherwise there is minimal luminal irregularities.
CORONARY INTERVENTION: The left coronary artery was selectively engaged using a 6 Setswana EBU 3.5 guide catheter. A 190cm 0.014 Pow[place]urn coronary wire was navigated across the mid and distal LAD stenoses into the distal LAD. The mid LAD stenosis
was predilated using a 2.25 x 20 mm semi-compliant balloon with good expansion. The same balloon was utilized to dilate the mid to distal stenosis with good expansion. We then implanted a 2.25 x 28 mm Xience bhanu point drug-eluting stent in the mid
to distal LAD and a 2.75 x 28 mm Xience bhanu point drug-eluting stent in the mid LAD. Based on IVUS guidance using Opiatalk [place] IVUS catheter, we postdilated the stents with a 2.5 x 20 mm NC balloon at 12 noelle and a 2.75 x 20 mm NC balloon at 18
onelle, respectively with an excellent angiographic result. At this point, we introduced a second 190cm 0.014 Pow[place]urn coronary wire into the diagonal artery. We stented the 70% stenosis with a 2.25 x 12 mm Xience bhanu point drug-eluting stent and
postdilated using a 2.25 x 12 mm NC balloon at 18 noelle with an excellent angiographic result. The patient had been loaded with 60 mg of prasugrel this morning. No acute complications.
SEDATION: 67 minutes of procedural sedation was utilized. An independent medical educator was present to assist with and help manage the patient's level of consciousness and physiologic status.
RADIATION SUMMARY: Fluoro Time (min): 10.6, Dose (mGy): 519.6, DAP (Gy.cm2) : 30.9
Closure Device: Vascular band over right radial artery, 14 cc of air
CONCLUSIONS
1. Successful percutaneous coronary artery intervention of 2 tandem lesions in the mid LAD (70% proximally and 80 to 85% distally) and an area of tubular diffuse up to 70% stenosis in the mid to distal LAD with 2 separate 2.75 x 28 mm Xience bhanu
point drug-eluting stent in the mid LAD and a 2.25 x 28 mm Xience bhanu point drug-eluting stent in the mid to distal LAD with IVUS guided postdilatation with a 2.75 x 20 mm and 2.5 x 20 mm NC balloons at high pressures with excellent angiographic
result.
2. Successful percutaneous coronary artery intervention of 70% stenosis in the proximal diagonal 1 with a 2.25 x 12 mm Xience bhanu point drug-eluting stent, postdilated with a 2.25 x 12 mm NC trek balloon at 18 noelle with an excellent angiographic
result.
RECOMMENDATIONS
1. Uninterrupted dual antiplatelet therapy with daily baby aspirin and prasugrel 10 mg along with high intensity statin and beta-miguel as tolerated.
2. Aggressive management of cardiovascular risk factors.
3. Wean radial band per protocol.
4. Referral for outpatient cardiac rehab.
Copy to: Bunny Reid MD
Charlene Champion MD, [facility], [facility]
[2023-11-20 12:43] LABS: ACT-LR - POC 120 Seconds (116-155)
[2023-11-20 12:50] LABS: ACT-LR - POC 219 Seconds (116-155)
[2023-11-20 13:00] LABS: ACT-LR - POC 258 Seconds (116-155)
--- NOTE | 2023-11-20 13:06 | PTCARENOTE ---
pt to transfer to room IVU 2250 after chemical laboratory scientist procedure , report given to receiving RN , pt aware of room change
[2023-11-20 13:10] LABS: ACT-LR - POC 269 Seconds (116-155)
[2023-11-20 13:24] LABS: ACT-LR - POC 300 Seconds (116-155)
--- NOTE | 2023-11-20 14:10 | PTCARENOTE ---
Rec'd report from [place] in the Cardiac laborer pole crew. Rec'd pt shortly after in bed, AAOx3 w/no c/o CP or SOB at this time. Pt w/ R radial band in place w/14cc of air in place. No signs or symptoms of bleeding or hematoma. Pt's SpO2 sat on RA 100% on R
middle digit. Pt's HR stable in the 80's. Pt's spouse at bedside. Pt w/call [place] within reach & plan of care ongoing.
[2023-11-20] MEDS: FLUSH (NSS) 2 FLUSH IV ×2 (17:20→17:53)
[2023-11-20] MEDS: MORPHINE SULFATE 4 MG IV (17:20)
[2023-11-20] MEDS: LIPITOR 40 MG PO (17:53)
[2023-11-20] MEDS: ZOFRAN 4 MG IV (17:53)
--- NOTE | 2023-11-20 18:00 | PTCARENOTE ---
While removing air from R radial band, pt was noted to have severe pain & swelling just below the R radial band. Pt w/ hardened area w/swelling below R band where a hematoma has developed this evening; 8/10 pain in R wrist & RUE. Pt also reporting
intermittent chest discomfort still. Initially given PO Tylenol after cath. Manual pressure applied to area of swelling for [address] Champion called & in to see pt. A 2nd R-band applied next to 1st band w/10 cc of air placed & 5 cc of replaced into
1st band by Dr Champion. Pt then got 4 mg IV Morphine at 1720 for severe 8/10 R wrist & RUE pain. Pt also given 4 mg IV Zofran x 1 dose for nausea. Orders rec'd for air to start to be removed from both bands in 2 hrs, starting at 1920. Pt advised of
plan of care. Spouse at bedside & no addtl needs at this time.
[2023-11-20] MEDS: ROXICODONE 2.5 MG PO (20:48)
--- NOTE | 2023-11-20 21:47 | PTCARENOTE ---
assumed care of pt from previous shift RN, sinus rhythm on tele, + peripheral pulses, trace edema to right hand and forearm s/p cardiac cath x2. Pt w radial bands x2 to right wrist. Air slow released, no signs of bleeding. pt does state that wrist
is tender, fingers are warm and have good cap refill. Roxicodone administered as ordered. Lungs CTA, pox 95-96%. +bs, tolerated PO take, voids spontaneously. PIV x2 flush easily. Pt is very anxious and tearful at times. Emotional support provided.
[2023-11-21] MEDS: ROXICODONE 5 MG PO (02:38)
[2023-11-21 02:41] VITALS: BP 112/88
--- NOTE | 2023-11-21 03:02 | PTCARENOTE ---
pt continues to complain about persistant pain to her right FA s/p cardiac cath. + radial pulse, fingers/hand and arm are pink and warm, + circ check. Pt is demanding something stronger for pain than Tylenol stating 'Tylenol will not work for this
kind of pain'. CV PA, Paulino Tee made aware. Prn order for Roxicodone placed. Pt was medicated as ordered. Will monitor.
[2023-11-21 03:05] LABS: Hemoglobin 11.7 g/dL (12.0-16.0); Mean Corp Hgb Conc. 34.4 g/dL (33.0-37.0); Mean Corpuscular Volume 84.2 fL (81.0-99.0); Mean Platelet Volume 9.4 fL (7.4-10.4); Platelet Count 287 10^3/uL (130-400); Red Blood Cell Count 4.04 10^6/uL (4.20-5.40); Red Cell Dist. Width 12.9 % (11.5-14.5); White Blood Cell Count 7.7 10^3/uL (4.8-10.8)
[2023-11-21 03:38] LABS: Blood Urea Nitrogen 10 mg/dl (7-17); Calcium 8.7 mg/dl (8.4-10.2); Carbon Dioxide 22 mmol/L (22-30); Chloride 106 mmol/L (98-107); Estimated Creatinine Clearance > 125 ml/min; Glucose 121 mg/dl (70-99); Potassium 3.9 mmol/L (3.5-5.1); Sodium 134 mmol/L (135-145); eGFR > 60.00
[2023-11-21 07:58] VITALS: BP 145/86
[2023-11-21 08:00] VITALS: BP 145/86
--- NOTE | 2023-11-21 08:24 | W.PN.CD ---
Addendum entered and electronically signed by Bunny Reid MD 11/21/23 15:34:
Radial US shows short segment occlusion - treatment is supportive. D/w patient - agree it does not seem intuitive to leave radial artery miguel, but I explained ulnar circulation, etc.
D/w pt re: pain management -> acetaminophen alone not cutting it, NSAIDs relatively contraindicated with DAPT/FL. She mentioned oxycodone or hydromorphone for home, but this seems excessive. She was concerned about Tylenol #3 since she had a
reaction to Vicodin. They are somewhat different AND she tolerated oxycodone here -> willing to try Tylenol #3.
D/w spouse/pt regarding anxiety. I would not at standing lorazepam at home given Tylenol #3 use and medical marijuana. I encouraged follow up with PMD & her psychiatrist (missed appt for this hospitalization)
Will d/c home if Tylenol #3 works
Original Note:
Today's Communication / Plan
-
- Tylenol with codeine
- US of radial
- I will ask interventional cardiology to look
Impression / Plan
-
Impression: 48F with NSTEMI secondary to complex LAD/Diagonal disease
Plan:
NSTEMI
- ASA
- Statin
- PCI
Right radial pain
- she did fine after first cath without pain
- Tylenol with codeine
- US of radial
- I will ask interventional cardiology to look
Anxiety - added benzodiazepine
Asthma
GERD
Dispo
Subjective: severe right radial/ arm pain
Laboratory Data
11/19/23 11/19/23 11/20/23
12:18 15:22 05:49
Hgb 12.3
Creatinine 0.6
Troponin I 0.713 H* 0.603 H* 0.376 H*
Triglycerides 154 H
Total Cholesterol 180
LDL Cholesterol, Calc 98
HDL Cholesterol 52
11/21/23
02:53
Hgb 11.7 L
Creatinine
Troponin I
Triglycerides
Total Cholesterol
LDL Cholesterol, Calc
HDL Cholesterol
Generic Name Dose Route Start Last Admin
Trade Name Nicol MORAN Reason Stop Dose Admin
Isosorbide Mononitrate 30 mg 11/19/23 18:00 11/20/23 07:39
Isosorbide Mononitrate 30 Mg Extended Release Tablet PO 12/17/23 17:59 30 mg
DAILY CAMI
Atorvastatin Calcium 40 mg 11/19/23 18:00 11/19/23 18:13
Atorvastatin (Lipitor) 40 Mg Tablet PO 12/17/23 17:59 40 mg
QPM CAMI
Atorvastatin Calcium 40 mg 11/19/23 18:00 11/20/23 17:53
Atorvastatin (Lipitor) 40 Mg Tablet PO 12/17/23 17:59 40 mg
QPM CAMI
Aspirin 81 mg 11/20/23 08:00 11/20/23 08:21
Aspirin 81 Mg Chewable Tablet PO 12/18/23 07:59 81 mg
DAILY CAMI
Prasugrel 10 mg 11/21/23 08:00
Prasugrel (Effient) 10 Mg Tablet PO 12/19/23 07:59
DAILY CAMI
Metoprolol Succinate 25 mg 11/21/23 08:00
Metoprolol 25 Mg Extended Release Tablet PO 12/19/23 07:59
DAILY CAMI
Physical Exam
Vital Signs/Labs
Vital Signs
Temp Pulse Resp BP Pulse Ox
36.6 C 92 16 145/86 100
11/21/23 08:00 11/21/23 08:00 11/21/23 08:00 11/21/23 08:00 11/21/23 08:00
11/20/23 11/21/23 11/22/23
06:59 06:59 06:59
Actual Weight 223 lb 1.725 oz
11/21/23 02:53
11/21/23 02:53
APTT Cancelled 11/20/23 12:30
Triglycerides 154 mg/dl (10-149) H 11/20/23 05:49
LDL Cholesterol, Calc 98 mg/dl 11/20/23 05:49
VLDL Cholesterol, Calc 30 mg/dl (0-30) 11/20/23 05:49
HDL Cholesterol 52 mg/dl 11/20/23 05:49
LAB Results
11/19/23 11/19/23 11/20/23
12:18 15:22 05:49
Troponin I 0.713 H* 0.603 H* 0.376 H*
Physical Exam
Constitutional: No acute distress
EENT: Anicteric and Moist mucous membranes
Cardiovascular: Rhythm & rate is regular, Systolic murmur absent, Diastolic murmur absent and Pedal edema present
Respiratory: Respiratory effort normal, Lungs clear to auscul., Wheeze Absent and Crackles Absent
GI: Soft
Other: Cath Site (C/D/I VERY tender forearm. cap refill seems ok)
Data Reviewed
-
Date of Service: November 21, 2023
[2023-11-21] MEDS: TOPROL XL 25 MG PO (08:45)
[2023-11-21] MEDS: TYLENOL 650 MG PO (08:45)
[2023-11-21] MEDS: ATIVAN 1 MG PO ×2 (08:45→14:29)
[2023-11-21] MEDS: LOW STRENGTH ASPIRIN 81 MG PO (08:45)
[2023-11-21] MEDS: EFFIENT 10 MG PO (08:49)
--- NOTE | 2023-11-21 09:36 | PTCARENOTE ---
while doing walking rounds patient is weepy, right forearm swollen, tender to touch, patient has pain, good radial pulse. notified Dr. Reid, ordered U/S of right forearm. also patient requested Ativan and something for pain. Dr. Serrano
ordered Tylenol with codeine, patient refused, tylenol po given for pain as ordered. patient requested to get a shower, order was placed and she will get a shower after U/S. patient verbalizes understanding.
--- NOTE | 2023-11-21 11:27 | CM ---
CM following for DC planning needs.
Pt. transferred from an alternative unit. Reviewed initial assessment. Pt. resides in a private, 2 story home/ 2 DAVIE w/ spouse. Functionally, patient is indep. w/ ADLs, mobility without the use of any assisted device.
Met w/ pt. and spouse at bedside.
Pt. reports that she is doing well but is c/o feeling anxious-relayed concerns to BILLING REPRESENTATIVE.
Anticipated DC plan is for home w/ no needs. Will cont. to follow.
[2023-11-21 12:34] VITALS: BP 131/80
[2023-11-21] MEDS: TYLENOL #3 2 TABLET PO (14:28)
--- NOTE | 2023-11-21 14:30 | PTCARENOTE ---
patient is very tearful, c/o pain in right forearm, Ativan and Tylenol # 3 po given as ordered.
[2023-11-21 14:31] VITALS: BMI 32.8
--- NOTE | 2023-11-21 14:37 | W.DS.TRANS ---
DC Summary - Sql Report Developer
-
Discharge Instructions:
Discharge Diagnosis/Procedures NSTEMI, Angioplasty with stent to Left Anterior
Descending and Diagonal arteries
Diet Low Cholesterol
Driving Restrictions No driving for 24 hours
Other Services Cardiac Rehab
Instructions:
Stand-Alone Forms: DC Instructions- Cath/EP Lab
Changes to Home Medications: Yes
Discharge Medications:
DC Medications w/original date entered in [employer]
Medical Marijuana 1 gummy PO HSPRN PRN anxiety 11/19/23
Medical Marijuana 20 inh inhalation QPMPRN PRN anxiety 11/19/23
albuterol sulfate 90 mcg/actuation aerosol inhaler 2 puff inhalation R Q4HPRN PRN sob/wheezing 11/19/23
ibuprofen 200 mg tablet (Motrin IB) 400 mg PO DAILYPRN PRN mild pain 11/19/23
tetrahydrozoline 0.05 % eye drops (Visine) 1 - 2 drp BOTH EYES DAILYPRN PRN dry eyes 11/19/23
aspirin 81 mg chewable tablet (Children's Aspirin) 81 mg PO DAILY #90 tabs 11/21/23
atorvastatin 40 mg tablet 40 mg PO QPM #90 tabs 11/21/23
lisinopril 2.5 mg tablet 2.5 mg PO DAILY #90 tabs 11/21/23
metoprolol succinate 25 mg tablet,extended release 24 hr 25 mg PO DAILY #90 tabs 11/21/23
nitroglycerin 0.4 mg sublingual tablet 0.4 mg sublingual [id number] PRN chest pain #25 tabs 11/21/23
prasugrel 10 mg tablet 10 mg PO DAILY #90 tabs 11/21/23
Home Medication Changes
NEW: aspirin, atorvastatin, lisinopril, metoprolol succinate, prasugrel, nitrostat
SHORT TERM WRITTEN RX: Tylenol #3 (10 pills, no refills)
Pending Results: No
--- NOTE | 2023-11-21 15:00 | PTCARENOTE ---
D/C instructions given to patient and both verbalizes understanding. INT x 2 D/C'd, telemetry D/C'd, personal belongings packed and sent with patient. D/C to home via wc accompanied by staff.
== END 2023-11-21 15:54 | disposition home or self-care (01) | DRG 322 ==
LOC: IVU 16:32
PROVIDERS: Internal Medicine Interventional Cardiology; Nurse Practitioner Adult Health; Nurse Practitioner Family; ADMITTING PHYSICIAN Internal Medicine Cardiovascular Disease; EMERGENCY PHYSICIAN Student in an Organized Health Care Education/Training Program; FAMILY PHYSICIAN Family Medicine; OTHER PHYSICIAN Thoracic Surgery (Cardiothoracic Vascular Surgery)
PROC: B2151ZZ Fluoroscopy of Left Heart using Low Osmolar Contrast (ICD-10-PCS; 2023-11-19)
PROC: 4A023N7 Measurement of Cardiac Sampling and Pressure, Left Heart, Percutaneous Approach (ICD-10-PCS; 2023-11-19)
PROC: B2111ZZ Fluoroscopy of Multiple Coronary Arteries using Low Osmolar Contrast (ICD-10-PCS; 2023-11-19)
PROC: B240ZZ3 Ultrasonography of Single Coronary Artery, Intravascular (ICD-10-PCS; 2023-11-20)
PROC: 027136Z Dilation of Coronary Artery, Two Arteries with Three Drug-eluting Intraluminal Devices, Percutaneous Approach (ICD-10-PCS; 2023-11-20)
DX: I21.4 Non-ST elevation (NSTEMI) myocardial infarction (principal); I25.10 Atherosclerotic heart disease of native coronary artery without angina pectoris; J45.909 Unspecified asthma, uncomplicated; K21.9 Gastro-esophageal reflux disease without esophagitis; F12.90 Cannabis use, unspecified, uncomplicated; F41.0 Panic disorder [episodic paroxysmal anxiety]; E78.5 Hyperlipidemia, unspecified; I10 Essential (primary) hypertension; Z79.899 Other long term (current) drug therapy; Z82.49 Family history of ischemic heart disease and other diseases of the circulatory system; Z87.891 Personal history of nicotine dependence
CPT/HCPCS: 71046; 76937; 80048; 80053; 80061; 83036; 84484; 84703; 85025; 85027; 85347; 85730; 92978; 93005; 93306; 93454; 93458; 93931; 96365; 96366; 99152; 99153; 99285; C1725; C1753; C1874; C1894; C9600; C9601; Q9950; Q9967

== ENCOUNTER 2023-11-25 07:55 | Emergency (ER) | payer BC, SELFPAY ==
[2023-11-25 07:58] VITALS: BP 163/98
--- NOTE | 2023-11-25 09:31 | ED.GENMED ---
History of Present Illness
<Félix Neville PA-C - Last Filed: 11/25/23 12:23>
General
Chief Complaint: Extremity Pain (non-traumatic)
Source: patient and records
Time Seen by Provider: 11/25/23 09:10
Travel History
Have you had any contact with someone who has COVID-19?: No
Do you have any symptoms of coronavirus? Fever > 100 degrees, chills, cough, shortness of breath, sore throat, loss of taste or smell, muscle aches, or headache?: No
History of Present Illness
History of Present Illness:
48-year-old female with past medical history of hypertension, GERD, status post cardiac catheterization from NSTEMI last week presenting back to the emergency department for evaluation of right upper extremity pain, edema and ecchymosis. During
patient's admission and the day following her cardiac catheterization and stent placement she had pain to the right forearm so an arterial ultrasound was performed which showed an occlusion of the right radial artery which patient states she was
told can happen postop. She states that after her discharge home she has remained with pain, swelling and ecchymosis and feels that this is worsened which is what prompted her to come back to the ER today. She denies any fevers, chills, rigors,
cough, chest pain, shortness of breath or any other concerns. Taking Tylenol at home with minimal relief.
Past History
<Félix Neville PA-C - Last Filed: 11/25/23 12:23>
Past History
ED Past Medical History: Asthma, GERD and [place]
ED Past Surgical History: Cardiac, Orthopedic and Other
Social History
Tobacco: Non-smoker
Alcohol: None
Drug: None
Personal:
Living: with family
Family History
Family History: Negative Early CAD
Review of Systems
<Félix Neville PA-C - Last Filed: 11/25/23 12:23>
Review of Systems
All Other Systems: ROS reviewed and negative except as documented in HPI and ROS
Phy Exam
<Félix Neville PA-C - Last Filed: 11/25/23 12:23>
Physical Exam
Physical Exam:
GENERAL: Alert , in no apparent distress
EYE: conjunctiva clear
NECK: Supple
ENT: o/p clr, mmm.
CARDIAC: Regular rate and rhythm
LUNGS: Clear breath sounds bilaterally, no acute respiratory distress, no wheezes/rales/rhonchi
NEUROLOGICAL: Alert and oriented
SKIN: Warm and dry, skin intact.
MUSCULOSKELETAL: Right upper extremity: Volar portion of the right forearm has ecchymosis from the distalmost aspect extending towards the mid forearm with moderate soft tissue swelling and tenderness but no overlying erythema. Patient does allow
for range of motion of her digits without any difficulty but does have some pain with wrist flexion and extension. Sensation is grossly intact to light touch throughout all digits. Cap refills less than 2 seconds extremities otherwise warm and
well-perfused. Patient has a clearly dopplerable radial pulse. Remainder of extremity is within normal limits.
PSYCH: Normal and appropriate interaction.
Scores
<Félix Neville PA-C - Last Filed: 11/25/23 12:23>
Heart Failure Risk
Heart Failure Risk Score: Not Applicable
Heart Score for Chest Pain Patients
STEMI patient?: Not applicable
Withdrawal Assessment of Alcohol
Withdrawal Assessment Completed?: Not applicable
Course
<Félix Neville PA-C - Last Filed: 11/25/23 12:23>
Orders/Labs/Results
Orders:
Orders
11/25/23 09:31
US Periph Arterial UPPER Ext Urgent
Comment:
Reason For Exam: recent cardiac cath, pain,edema
11/25/23 09:33
HYDROmorphone [Dilaudid] 0.5 mg IV NOW STA
11/25/23 09:48
Basic Metabolic Panel Urgent
Complete Blood Count/With Diff Urgent
PTT Urgent
Prothrombin Time Urgent
11/25/23 11:22
Sling Right-Treatment ONCE
Abnormal Lab Results
11/25/23
09:48
RBC 4.14 L 10^6/uL
(4.20-5.40)
Hct 35.0 L %
(37.0-47.0)
Sodium 134 L mmol/L
(135-145)
Creatinine 0.5 L mg/dL
(0.6-1.0)
Glucose 106 H mg/dl
(70-99)
11/25/23 09:48
11/25/23 09:48
Vital Signs
Initial and Last Documented VS:
Initial Vital Signs
Temp Pulse Resp BP Pulse Ox
98.3 F 95 20 163/98 98
11/25/23 07:58 11/25/23 07:58 11/25/23 07:58 11/25/23 07:58 11/25/23 07:58
Last Documented Vital Signs
Temp Pulse Resp BP Pulse Ox
98.3 F 67 16 126/75 98
11/25/23 07:58 11/25/23 11:30 11/25/23 11:30 11/25/23 11:01 11/25/23 07:58
<Jayy Massey MD - Last Filed: 11/25/23 09:50>
Orders/Labs/Results
Orders:
Orders
11/25/23 09:31
US Periph Arterial UPPER Ext Urgent
Comment:
Reason For Exam: recent cardiac cath, pain,edema
11/25/23 09:33
HYDROmorphone [Dilaudid] 0.5 mg IV NOW STA
11/25/23 09:48
Basic Metabolic Panel Urgent
Complete Blood Count/With Diff Urgent
PTT Urgent
Prothrombin Time Urgent
11/25/23 11:22
Sling Right-Treatment ONCE
Abnormal Lab Results
11/25/23
09:48
RBC 4.14 L 10^6/uL
(4.20-5.40)
Hct 35.0 L %
(37.0-47.0)
Sodium 134 L mmol/L
(135-145)
Creatinine 0.5 L mg/dL
(0.6-1.0)
Glucose 106 H mg/dl
(70-99)
11/25/23 09:48
11/25/23 09:48
Vital Signs
Initial and Last Documented VS:
Initial Vital Signs
Temp Pulse Resp BP Pulse Ox
98.3 F 95 20 163/98 98
11/25/23 07:58 11/25/23 07:58 11/25/23 07:58 11/25/23 07:58 11/25/23 07:58
Last Documented Vital Signs
Temp Pulse Resp BP Pulse Ox
98.3 F 67 16 126/75 98
11/25/23 07:58 11/25/23 11:30 11/25/23 11:30 11/25/23 11:01 11/25/23 07:58
<Félix Neville PA-C - Last Filed: 11/25/23 12:23>
MDM/Problems Addressed
Differential Diagnosis Includes:
Postoperative pain/edema, pseudoaneurysm, continued radial artery occlusion
MDM/Problems Addressed:
48-year-old female presenting to the emergency department for evaluation of continued right upper extremity pain/edema/ecchymosis in the setting of recent arterial puncture for cardiac catheterization. Arterial ultrasound done 5 days ago did show a
radial artery occlusion but no evidence of pseudoaneurysm. Patient is fairly well on exam. Will treat with half milligram of Dilaudid. Will discuss case with vascular surgery with anticipation of reimaging the right upper extremity.
Chronic conditions affecting care: CAD
<Félix Neville PA-C - Last Filed: 11/25/23 12:23>
*Radiology
Radiology exam reviewed: radiology read reviewed
*Pulse Oximetry
Patient hypoxic: no
*Critical Care Note
Total Time (30-74mins, 75-104mins- exclusive of procedures): Not Applicable
Data Reviewed
Review of Other/Old Records Reveals: Labs, Records and Radiology Studies
<Félix Neville PA-C - Last Filed: 11/25/23 12:23>
Patient Management
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
Escalation/DeEscalation of care consider admission/obs:
Patient's ultrasound shows continued right radial artery occlusion. I renotified vascular surgery on-call who states that there is nothing else to do at this time. Would recommend compression and elevation to the area for pain control patient did
note while holding her arm elevated did help the pain. Dylan wrap was applied and sling provided as well. Short-term course of Percocet was sent to patient's pharmacy for comfort. She will continue outpatient management and is aware of return
precautions to the emergency department.
ED Attending Note
<Félix Neville PA-C - Last Filed: 11/25/23 12:23>
-
Portions of this chart may have been created with voice recognition software.� Occasional wrong word or��sound alike� substitutions may have occurred due to the inherent limitations of voice recognition software.
<Jayy Massey MD - Last Filed: 11/25/23 09:50>
ED Attending Note
Patient seen and examined by attending physician: Yes
I performed the substantive portion of visit, reviewed & personally made and approve the management plan that is documented in note by myself or NATALIE.: Yes
ED Attending Note:
48-year-old female right radial artery cardiac catheterization 411. Some increased postop pain. Had a ultrasound that showed occlusion of the right radial artery. Has had ongoing pain and swelling. No numbness tingling or weakness. On exam
there is ecchymosis to the right forearm on the volar aspect extending to the proximal forearm. Ecchymosis is mostly yellowing at this time. Puncture wounds appear well. No drainage no erythema no warmth. Good distal color. Good capillary
refill.
Unlikely to be an acute arterial issue. No signs of infection. Will get ultrasound. If stable splint and pain management.
Discharge Plan
Departure
Patient Disposition: Home (Routine Discharge)
Date of Disposition: 11/25/23
Time of Disposition: 11:15
Patient with high blood pressure during this ER visit?: Yes
Discharge Problem:
Postprocedural pain of extremity following cardiac catheterization, Occlusion of right radial artery
Instructions: Postoperative Pain (DC)
Prescriptions:
New
oxycodone 5 mg tablet
5 mg PO Q6H PRN (Reason: Pain) Qty: 8 0RF
No Action
tetrahydrozoline [Visine] 0.05 % Drops
1 - 2 drp BOTH EYES DAILYPRN PRN (Reason: dry eyes)
ibuprofen [Motrin IB] 200 mg Tablet
400 mg PO DAILYPRN PRN (Reason: mild pain)
albuterol sulfate 90 mcg/actuation Hfa Aerosol Inhaler
2 puff INHALATION R Q4HPRN PRN (Reason: sob/wheezing)
Medical Marijuana
20 inh inhalation QPMPRN PRN (Reason: anxiety)
Medical Marijuana
1 gummy PO HSPRN PRN (Reason: anxiety)
prasugrel 10 mg Tablet
10 mg PO DAILY Qty: 90 3RF
atorvastatin 40 mg Tablet
40 mg PO QPM Qty: 90 3RF
aspirin [Children's Aspirin] 81 mg Tablet,Chewable
81 mg PO DAILY Qty: 90 3RF
nitroglycerin 0.4 mg Tablet, Sublingual
0.4 mg sublingual [id number] PRN (Reason: chest pain) Qty: 25 2RF
metoprolol succinate 25 mg Tablet Extended Release 24 Hr
25 mg PO DAILY Qty: 90 3RF
lisinopril 2.5 mg tablet
2.5 mg PO DAILY Qty: 90 3RF
acetaminophen-codeine 300-15 mg tablet
1 tab PO Q4H PRN (Reason: moderate-severe pain) Qty: 10 0RF
Referrals:
UNKNOWN - PT DOES,NOT KNOW [Family Provider] -
Interventions
Interventions:
*Risk Screen - Suicide Last Done: 11/25/23 07:58
*General Assessment Last Done: 11/25/23 07:58
*Neglect/Abuse Screening Last Done: 11/25/23 07:58
ED- Fall Risk Assessment Last Done: 11/25/23 09:55
*ED COVID-19 Vaccine History Last Done: 11/25/23 09:52
*Nursing Disposition Last Done: 11/25/23 11:51
ED-Skin Assessment Last Done: 11/25/23 09:55
ED-Peripheral Vascular Assessment Last Done: 11/25/23 09:55
ED-Musculoskeletal Assessment Last Done: 11/25/23 09:55
Discharge Date and Time
Discharge Date/Time: 11/25/23 11:51
Print Language: VENEZUEL[place]
[2023-11-25 09:38] VITALS: BMI 33.6
[2023-11-25] MEDS: DILAUDID 0.5 MG IV (09:49)
[2023-11-25 10:15] LABS: % Basophils 0.4 % (0-2); % Eosinophils 0.4 % (0-6); % Immature Granulocytes 0.4 % (0-0.5); % Lymphocytes 35.1 % (20.5-51.1); % Monocytes 7.3 % (1.7-9.3); % Neutrophils 56.4 % (42.2-75.2); Absolute Lymphocytes 2.8 10^3/uL (1.2-3.4); Absolute Monocytes 0.6 10^3/uL (0.1-0.6); Absolute Neutrophils 4.5 10^3/uL (1.4-6.5); Hemoglobin 12.2 g/dL (12.0-16.0); Mean Corp Hgb Conc. 34.9 g/dL (33.0-37.0); Mean Corpuscular Hgb 29.5 pg (27.0-31.0); Mean Corpuscular Volume 84.5 fL (81.0-99.0); Mean Platelet Volume 9.6 fL (7.4-10.4); Nucleated Red Blood Cells % 0 %; Platelet Count 315 10^3/uL (130-400); Red Blood Cell Count 4.14 10^6/uL (4.20-5.40); Red Cell Dist. Width 12.8 % (11.5-14.5)
[2023-11-25 10:25] LABS: INR 1.06; PT 13.6 Sec (11.4-14.6)
[2023-11-25 10:26] LABS: APTT 29.8 Sec (23.4-35.0)
[2023-11-25 11:01] VITALS: BP 126/75
[2023-11-25 11:06] LABS: Blood Urea Nitrogen 11 mg/dl (7-17); Calcium 9.6 mg/dl (8.4-10.2); Carbon Dioxide 22 mmol/L (22-30); Chloride 105 mmol/L (98-107); Estimated Creatinine Clearance > 125 ml/min; Glucose 106 mg/dl (70-99); Potassium 4.7 mmol/L (3.5-5.1); Sodium 134 mmol/L (135-145); eGFR > 60.00
== END 2023-11-25 11:51 | disposition home or self-care (01) ==
LOC: EMR 07:55
PROVIDERS: Physician Assistant Medical; EMERGENCY PHYSICIAN Emergency Medicine
DX: G89.18 Other acute postprocedural pain (principal); I74.2 Embolism and thrombosis of arteries of the upper extremities; I10 Essential (primary) hypertension; I25.10 Atherosclerotic heart disease of native coronary artery without angina pectoris; Z95.5 Presence of coronary angioplasty implant and graft
CPT/HCPCS: 99284; 96374; 80048; 85025; 85610; 85730; 93930

== ENCOUNTER → 2023-12-30 16:17 | Outpatient (REF) | payer BC, SELFPAY | LOC: WDC 16:17 | PROVIDERS: ATTENDING PHYSICIAN Obstetrics & Gynecology Gynecology; FAMILY PHYSICIAN Family Medicine | DX: Z12.31 Encounter for screening mammogram for malignant neoplasm of breast (principal) | CPT/HCPCS: 77063; 77067 ==

== ENCOUNTER → 2024-01-08 09:03 | Outpatient (REF) | payer BC, SELFPAY | LOC: RAD 09:03 | PROVIDERS: ATTENDING PHYSICIAN Surgery Vascular Surgery | DX: I70.208 Unspecified atherosclerosis of native arteries of extremities, other extremity (principal); Z13.6 Encounter for screening for cardiovascular disorders | CPT/HCPCS: 76770; 93880; 93922; 93925 ==

== ENCOUNTER 2024-01-09 11:38 | Outpatient (RCR) | payer BC, SELFPAY ==
[2023-12-22 10:59] LABS: Glucose - Point of Care 86 mg/dl (70-99)
[2023-12-22 11:10] LABS: Glucose - Point of Care 93 mg/dl (70-99)
[2023-12-22 11:58] LABS: Glucose - Point of Care 89 mg/dl (70-99)
[2023-12-24 11:00] LABS: Glucose - Point of Care 123 mg/dl (70-99)
[2023-12-24 11:58] LABS: Glucose - Point of Care 100 mg/dl (70-99)
[2023-12-29 11:06] LABS: Glucose - Point of Care 131 mg/dl (70-99)
[2023-12-29 12:07] LABS: Glucose - Point of Care 91 mg/dl (70-99)
[2024-01-07 11:31] LABS: Glucose - Point of Care 71 mg/dl (70-99)
[2024-01-07 11:51] LABS: Glucose - Point of Care 83 mg/dl (70-99)
[2024-01-09 11:12] LABS: Glucose - Point of Care 120 mg/dl (70-99)
== END 2024-01-09 23:59 | disposition home or self-care (01) ==
LOC: CRHB 11:38
PROVIDERS: ATTENDING PHYSICIAN Internal Medicine Cardiovascular Disease
DX: I25.10 Atherosclerotic heart disease of native coronary artery without angina pectoris (principal); Z95.5 Presence of coronary angioplasty implant and graft
CPT/HCPCS: 82962; 93797; 93798

== ENCOUNTER → 2024-02-03 09:09 | Outpatient (REF) | payer BC, SELFPAY | LOC: WDC 09:09 | PROVIDERS: ATTENDING PHYSICIAN Obstetrics & Gynecology Gynecology; FAMILY PHYSICIAN Family Medicine | DX: R92.2 Inconclusive mammogram (principal); Z80.3 Family history of malignant neoplasm of breast | CPT/HCPCS: 76641 ==

== ENCOUNTER 2024-02-06 15:25 | Outpatient (RCR) | payer BC, SELFPAY ==
[2024-02-04 14:51] LABS: Glucose - Point of Care 122 mg/dl (70-99)
== END 2024-02-06 23:59 | disposition home or self-care (01) ==
LOC: CRHB 15:25
PROVIDERS: ATTENDING PHYSICIAN Internal Medicine Cardiovascular Disease
DX: I25.10 Atherosclerotic heart disease of native coronary artery without angina pectoris (principal); Z95.5 Presence of coronary angioplasty implant and graft; I25.2 Old myocardial infarction
CPT/HCPCS: 82962; 93797; 93798

== ENCOUNTER 2024-02-18 13:30 | Outpatient (RCR) | payer BC, SELFPAY | END 2024-02-18 23:59 | disposition home or self-care (01) | LOC: CRHB 13:30 | PROVIDERS: ATTENDING PHYSICIAN Internal Medicine Cardiovascular Disease; FAMILY PHYSICIAN Family Medicine | DX: I25.10 Atherosclerotic heart disease of native coronary artery without angina pectoris (principal); Z95.5 Presence of coronary angioplasty implant and graft; I25.2 Old myocardial infarction | CPT/HCPCS: 93797; 93798 ==

== ENCOUNTER 2024-03-09 12:24 | Emergency (ER) | payer BC, SELFPAY ==
[2024-03-09 12:28] VITALS: BP 169/102
[2024-03-09 13:16] LABS: COVID-19 Antigen Negative (Negative)
--- NOTE | 2024-03-09 13:34 | ED.GENMED ---
History of Present Illness
General
Chief Complaint: Chest Pain
Source: patient
Exam Limitations: none
Time Seen by Provider: 03/09/24 13:00
Nursing documentation reviewed up to this point in time: agreed with
History of Present Illness
History of Present Illness:
The patient is a 48-year-old female the past medical history of asthma and coronary artery disease with multiple stents, who presents with several days of what she describes as soreness and fatigue in her chest as well as an occasional cough.
Patient reports fatigue and lack of energy. She reports that the ' soreness in her chest' has been particularly intense over the last 24 to 36 hours. Patient denies leg pain and leg swelling. Patient reports she was at her primary care doctor
prior to arrival who, after hearing her symptoms, recommended that she come to the emergency department specifically for chest x-ray and troponin. Patient reports that she recently had a heart attack with similar symptoms so she just wants to make
sure she is okay. Patient denies a history of PE and DVT. She denies leg pain and leg swelling.
Past History
Past History
ED Past Medical History: Asthma, GERD and [place]
ED Past Surgical History: Cardiac, Orthopedic and Other
Social History
Tobacco: Non-smoker
Alcohol: None
Drug: None
Personal:
Living: with family
Employment: Other
Review of Systems
Review of Systems
Allergies reviewed?: Yes
All Other Systems: ROS reviewed and negative except as documented in HPI and ROS
Constitutional: Reports fatigue
EENT: Reports no symptoms
Respiratory: Reports cough
Cardiac: Reports chest pain
ABD/GI: Reports no symptoms
: Reports no symptoms
Musculoskeletal: Reports no symptoms
Skin: Reports no symptoms
Neurological: Reports no symptoms
Endocrine: Reports no symptoms
Hematologic/Lymphatic: Reports no symptoms
Psychiatric: Reports no symptoms
Phy Exam
Physical Exam
Physical Exam:
Physical Exam
General: no apparent distress, not acutely ill. So patient appears comfortable. Is conversational
Neck: supple. no meningeal signs. normal psoterior pharynx
Heart: s1/s2 regular rate and rhythm, no murmur. equal radial pulses.
Lungs: no acute respiratory distress. clear bilaterally
Abdomen: normal bowel sounds. not tender. no CVAT
Neuro: alert and oriented. no focal neurological deficits
Skin: no rash
Psychiatric: well kept. interactive and cooperative
Extremities: no edema. no calf tenderness. negative homans. good distal pulses
Scores
Heart Score for Chest Pain Patients
STEMI patient?: No
History: Slightly or Non-Suspicious
ECG: Nonspecific Repolarization
Age: >45 - <65 years
Risk Factors: >/= 3 Risk Factors or History of CAD
Troponin: </= Normal Limit
Heart Score for Chest Pain Patients: 4
Heart Score Risk: 20.3% MACE over next 6 weeks
Course
Orders/Labs/Results
Orders:
Orders
03/09/24 12:25
Electrocardiogram (*1) Urgent
Reason for Study: Chest Pain
EKG- Treatment ONCE
03/09/24 12:35
Test Result ONCE
03/09/24 12:38
CR Chest - 2 Views Urgent
Comment:
Reason For Exam: cough, congestion, chest pain, upper back pain
03/09/24 12:42
COVID-19 Antigen Urgent
Source: Nasal Swab
03/09/24 13:36
Complete Blood Count/With Diff Urgent
03/09/24 14:52
Beta HCG Quantitative Urgent
Comprehensive Metabolic Panel Urgent
Troponin I Urgent
03/09/24 15:35
Doxycycline [Vibramycin] 100 mg PO NOW STA
Abnormal Lab Results
03/09/24 03/09/24
13:36 14:52
RBC 4.11 L 10^6/uL
(4.20-5.40)
Hct 34.0 L %
(37.0-47.0)
Glucose 117 H mg/dl
(70-99)
AST 40 H U/L
(14-36)
ALT 46 H U/L
(0-35)
03/09/24 13:36
03/09/24 14:52
Vital Signs
Initial and Last Documented VS:
Initial Vital Signs
Temp Pulse Resp BP Pulse Ox
98.5 F 89 18 169/102 98
03/09/24 12:28 03/09/24 12:28 03/09/24 12:28 03/09/24 12:28 03/09/24 12:28
Last Documented Vital Signs
Temp Pulse Resp BP Pulse Ox
98.5 F 74 16 142/71 98
03/09/24 12:28 03/09/24 14:00 03/09/24 14:00 03/09/24 14:00 03/09/24 14:00
MDM/Problems Addressed
Differential Diagnosis Includes:
acute coronary syndrome, pneumonia, pulmonary embolism, aortic dissection, congestive heart failure, pleuritic chest pain
MDM/Problems Addressed:
Patient presents with acute chest tightness and cough
Chronic conditions affecting care: CAD and Asthma
Acute Exacerbation and/or Progression of Chronic Illness:
Patient may have acute exacerbation of her coronary artery disease
Acute Exacerbation and/or Progression of Chronic Illness: CAD
*Radiology
Radiology exam reviewed: preliminary read by ED provider (Chest x-ray reviewed by me. No acute disease) and radiology read reviewed
*Pulse Oximetry
Patient hypoxic: no
*EKG
Interpreted by ED Provider?: Yes
Interpretation: abnormal
Comparison EKG: no changes
Rate: normal
Rhythm: sinus
[place]: normal axis
Interval: normal interval
QRS Pattern: normal QRS
Ischemia: non-specific ST changes
*Protocol Manager Interpretation
Rate: normal
Interpretation: normal
Rhythm: sinus
*Critical Care Note
Total Time (30-74mins, 75-104mins- exclusive of procedures): Not Applicable
Data Reviewed
Review of Other/Old Records Reveals: Operative Reports (Cardiac catheterization reviewed from November 2023 which showed significant LAD disease with multiple stenting)
Source: patient and spouse
Patient Management
Social determinants of health affecting care: Living situation and Strong social support
Discussion with other providers: Other ([place] text sent to Dr. Cee explaining that patient was seen here in the ED and will need outpatient follow-up.)
Escalation/DeEscalation of care consider admission/obs:
Patient remains very well and comfortable appearing. Her chest x-ray is clear. Her lungs are clear without any sign of respiratory distress or tachypnea. Her EKG appears nonischemic and her troponin is normal. It is doubtful she is acute
coronary syndrome. Patient adamantly wants an antibiotic because she reports she has a history of asthma and has a new cough productive of mucus. We will treat her therefore with an antibiotic.
ED Attending Note
-
Portions of this chart may have been created with voice recognition software.� Occasional wrong word or��sound alike� substitutions may have occurred due to the inherent limitations of voice recognition software.
Discharge Plan
Departure
Patient Disposition: Home (Routine Discharge)
Date of Disposition: 03/09/24
Time of Disposition: 15:36
Patient with high blood pressure during this ER visit?: Yes
Condition: Good
Covid-19: Negative COVID-19
Discharge Problem:
Acute cough
Instructions: Bronchitis, Adult ED, Chest Pain DCA Follow Up
Prescriptions:
New
doxycycline hyclate 100 mg capsule
100 mg PO BID Qty: 13 0RF
No Action
tetrahydrozoline [Visine] 0.05 % Drops
1 - 2 drp BOTH EYES DAILYPRN PRN (Reason: dry eyes)
ibuprofen [Motrin IB] 200 mg Tablet
400 mg PO DAILYPRN PRN (Reason: mild pain)
albuterol sulfate 90 mcg/actuation Hfa Aerosol Inhaler
2 puff INHALATION R Q4HPRN PRN (Reason: sob/wheezing)
Medical Marijuana
20 inh inhalation QPMPRN PRN (Reason: anxiety)
Medical Marijuana
1 gummy PO HSPRN PRN (Reason: anxiety)
prasugrel 10 mg Tablet
10 mg PO DAILY Qty: 90 3RF
atorvastatin 40 mg Tablet
40 mg PO QPM Qty: 90 3RF
aspirin [Children's Aspirin] 81 mg Tablet,Chewable
81 mg PO DAILY Qty: 90 3RF
nitroglycerin 0.4 mg Tablet, Sublingual
0.4 mg sublingual [id number] PRN (Reason: chest pain) Qty: 25 2RF
metoprolol succinate 25 mg Tablet Extended Release 24 Hr
25 mg PO DAILY Qty: 90 3RF
lisinopril 2.5 mg tablet
2.5 mg PO DAILY Qty: 90 3RF
acetaminophen-codeine 300-15 mg tablet
1 tab PO Q4H PRN (Reason: moderate-severe pain) Qty: 10 0RF
oxycodone 5 mg tablet
5 mg PO Q6H PRN (Reason: Pain) Qty: 8 0RF
Referrals:
Mell Ponce MD [Family Provider] -
Interventions
Interventions:
*Risk Screen - Suicide Last Done: 03/09/24 12:28
*General Assessment Last Done: 03/09/24 12:28
*Neglect/Abuse Screening Last Done: 03/09/24 12:28
ED- Cardiac Assessment Last Done: 03/09/24 13:00
Discharge Date and Time
Print Language: CONGOL[place]
[2024-03-09 13:43] LABS: % Basophils 0.3 % (0-2); % Eosinophils 0.7 % (0-6); % Immature Granulocytes 0.3 % (0-0.5); % Lymphocytes 35.5 % (20.5-51.1); % Monocytes 8.2 % (1.7-9.3); Absolute Lymphocytes 2.2 10^3/uL (1.2-3.4); Absolute Monocytes 0.5 10^3/uL (0.1-0.6); Absolute Neutrophils 3.4 10^3/uL (1.4-6.5); Hemoglobin 12.1 g/dL (12.0-16.0); Mean Corp Hgb Conc. 35.6 g/dL (33.0-37.0); Mean Corpuscular Hgb 29.4 pg (27.0-31.0); Mean Corpuscular Volume 82.7 fL (81.0-99.0); Mean Platelet Volume 10.1 fL (7.4-10.4); Nucleated Red Blood Cells % 0 %; Platelet Count 293 10^3/uL (130-400); Red Blood Cell Count 4.11 10^6/uL (4.20-5.40); Red Cell Dist. Width 12.6 % (11.5-14.5); White Blood Cell Count 6.1 10^3/uL (4.8-10.8)
[2024-03-09 14:00] VITALS: BP 142/71
[2024-03-09 15:24] LABS: AST (SGOT) 40 U/L (14-36); Albumin 4.5 g/dl (3.5-5.0); Alkaline Phosphatase 125 U/L (38-126); Blood Urea Nitrogen 13 mg/dl (7-17); Calcium 9.7 mg/dl (8.4-10.2); Carbon Dioxide 27 mmol/L (22-30); Chloride 103 mmol/L (98-107); Glucose 117 mg/dl (70-99); Potassium 4.4 mmol/L (3.5-5.1); Sodium 138 mmol/L (135-145); Total Bilirubin 0.8 mg/dl (0.2-1.3); Total Protein 7.3 g/dl (6.3-8.2); eGFR > 60.00
[2024-03-09 15:30] LABS: Troponin I < 0.012 ng/ml
[2024-03-09 15:33] LABS: ALT (SGPT) 46 U/L (0-35)
[2024-03-09 15:35] LABS: Beta HCG Quantitative < 2.39 mIU/ml
[2024-03-09] MEDS: VIBRAMYCIN 100 MG PO (15:43)
== END 2024-03-09 15:51 | disposition home or self-care (01) ==
LOC: EMR 12:24
PROVIDERS: Emergency Medicine; EMERGENCY PHYSICIAN Emergency Medicine; FAMILY PHYSICIAN Family Medicine
DX: R05.9 Cough, unspecified (principal); J45.909 Unspecified asthma, uncomplicated; K21.9 Gastro-esophageal reflux disease without esophagitis; I25.2 Old myocardial infarction; I25.10 Atherosclerotic heart disease of native coronary artery without angina pectoris; Z95.5 Presence of coronary angioplasty implant and graft
CPT/HCPCS: 99283; 71046; 80053; 84484; 84702; 85025; 87811; 93005

== ENCOUNTER → 2024-03-29 15:05 | Outpatient (REF) | payer BC, SELFPAY | LOC: WDC 15:05 | PROVIDERS: ATTENDING PHYSICIAN Obstetrics & Gynecology Gynecology; FAMILY PHYSICIAN Family Medicine | DX: R92.8 Other abnormal and inconclusive findings on diagnostic imaging of breast (principal) | CPT/HCPCS: 76642 ==

== ENCOUNTER → 2024-05-17 14:02 | Outpatient (REF) | payer BC, SELFPAY | LOC: HWRAD 14:02 | PROVIDERS: ATTENDING PHYSICIAN Obstetrics & Gynecology Gynecology; FAMILY PHYSICIAN Family Medicine | DX: N93.9 Abnormal uterine and vaginal bleeding, unspecified (principal) | CPT/HCPCS: 76830; 76856 ==

== ENCOUNTER 2024-05-18 08:09 | Emergency (ER) | payer BC, SELFPAY ==
[2024-05-18 08:19] VITALS: BP 139/86
[2024-05-18 08:42] VITALS: BMI 31.4
--- NOTE | 2024-05-18 08:42 | ED.GENMED ---
History of Present Illness
General
Chief Complaint: Chest Pain
Source: patient, records and spouse
Exam Limitations: none
Time Seen by Provider: 05/18/24 08:26
Nursing documentation reviewed up to this point in time: agreed with
History of Present Illness
History of Present Illness:
49-year-old female with a past medical history of hypertension, CAD status post stents who presents to the ER for evaluation of chest pain and shortness of breath. Patient reports yesterday evening she walked up the stairs and had an intense
episode of shortness of breath�she says that she rested for about 30 minutes and symptoms went away. She said she did not have chest pain at that time. Then when she was laying in bed last night she began to develop some tingling in her right
cheek and jaw and some heaviness in her chest; she says that the symptoms are similar to symptoms she had prior to stent. She says ultimately the symptoms resolved after a few minutes and she was able to get to bed however this morning when she
woke up she once again was having heaviness in her chest; she says she called the plastic surgery manager and was referred to the ER to be evaluated. She denies any palpitations. She denies any recent cough, fevers, chills. Denies any swelling or pain in
the legs. She says that prior to yesterday evening she had not had any exertional symptoms and had good exercise tolerance. She does admit that she has been under increased stress recently and she wonders if this could be contributing to her
symptoms. Her primary plastic surgery manager is Dr. Kirk.
Past History
Past History
ED Past Medical History: Asthma, GERD and [place]
ED Past Surgical History: Cardiac, Orthopedic and Other
Social History
Tobacco: Non-smoker
Alcohol: None
Drug: None
Personal:
Living: with family
Employment: Other
Family History
Family History: Negative Early CAD
Review of Systems
Review of Systems
All Other Systems: ROS reviewed and negative except as documented in HPI and ROS
Constitutional: Denies fever or chills
Respiratory: Reports trouble breathing; Denies cough
Cardiac: Reports chest pain; Denies diaphoresis or palpitations
ABD/GI: Denies abdominal pain, vomiting or diarrhea
: Denies flank pain
Musculoskeletal: Denies edema, neck pain or back pain
Neurological: Denies dizzy or headache
Phy Exam
Physical Exam
Physical Exam:
General: Awake, alert, oriented x3; no acute distress
Head: Normocephalic, atraumatic
Eyes: Conjunctiva normal, sclera anicteric
Throat: Airway intact, handling secretions
Neck: Trachea midline, supple without meningismus
Lungs: Clear to auscultation bilaterally, no wheezing, rales, rhonchi
Heart: Regular rate and rhythm, no murmurs, gallops, or rubs
Abd: Soft, non distended, nontender
Neuro: No gross deficits
Skin: no rash
Extremities: No edema in extremities, equal pulses in all extremities (right radial pulse absent since cath in November however she does have palpable right ulnar pulse, strong left radial pulse and bilateral posterior tibial pulses)
Scores
Heart Failure Risk
Heart Failure Risk Score: Not Applicable
Heart Score for Chest Pain Patients
STEMI patient?: No
History: Moderately Suspicious
ECG: Normal
Age: >45 - <65 years
Risk Factors: >/= 3 Risk Factors or History of CAD
Troponin: </= Normal Limit
Heart Score for Chest Pain Patients: 4
Heart Score Risk: 20.3% MACE over next 6 weeks
Withdrawal Assessment of Alcohol
Withdrawal Assessment Completed?: Not applicable
Course
Orders/Labs/Results
Orders:
Orders
05/18/24 08:11
EKG [Electrocardiogram (*1)] Urgent
Reason for Study: Chest Pain
EKG- Treatment ONCE
05/18/24 08:27
CR Chest - 2 Views Urgent
Comment:
Reason For Exam: cp, sob
05/18/24 08:41
CARDIOLOGY CONSULT Urgent
Consulting Provider: Hiram Flood
Was physician already notified: Yes
05/18/24 09:17
Complete Blood Count/With Diff Urgent
Comprehensive Metabolic Panel Urgent
Troponin I Urgent
05/18/24 12:15
Troponin I Urgent
Abnormal Lab Results
05/18/24
09:17
Hct 35.1 L %
(37.0-47.0)
Glucose 198 H mg/dl
(70-99)
05/18/24 09:17
05/18/24 09:17
Vital Signs
Initial and Last Documented VS:
Initial Vital Signs
Temp Pulse Resp BP Pulse Ox
37.0 C 89 20 139/86 98
05/18/24 08:19 05/18/24 08:19 05/18/24 08:19 05/18/24 08:19 05/18/24 08:19
Last Documented Vital Signs
Temp Pulse Resp BP Pulse Ox
37.0 C 70 16 119/95 99
05/18/24 08:19 05/18/24 12:17 05/18/24 12:15 05/18/24 12:00 05/18/24 12:15
MDM/Problems Addressed
Differential Diagnosis Includes:
ACS, anxiety, GERD, costochondritis, PE considered very unlikely clinically
MDM/Problems Addressed:
49-year-old female presents to the emergency room for evaluation after episode of exertional shortness of breath yesterday evening followed by episode of chest pain while lying in bed and now this morning chest pain once again. She says chest pains
are similar to symptoms she was having prior to stent in November. Vital signs normal. Physical exam as above. Her EKG shows no STEMI. Will plan to place an IV check labs including a CBC and a CMP, troponin. Will check chest x-ray. Case discussed
with cardiology for consultation.
Initial labs reviewed: CBC and CMP unremarkable, troponin undetectable. Chest x-ray no acute disease. Continue to monitor.
Cardiology evaluated patient and I discussed the case with cardiology at bedside�recommend repeat troponin and if negative can be discharged home they will pursue outpatient stress testing.
Repeat troponin undetectable. Patient well-appearing with stable vital signs on clinical reassessment. She is comfortable with discharge and follow-up plan as above. Spoke about return precautions all questions answered.
Chronic conditions affecting care:
CAD, hypertension
*Radiology
Radiology exam reviewed: preliminary read by ED provider and radiology read reviewed
*Pulse Oximetry
Patient hypoxic: no
*EKG
Interpreted by ED Provider?: Yes
Heart Rate: 76
Rate: normal
Rhythm: sinus
Rand: normal axis
Interval: normal interval
QRS Pattern: normal QRS
Ischemia: no ischemia
*Critical Care Note
Total Time (30-74mins, 75-104mins- exclusive of procedures): Not Applicable
Data Reviewed
Review of Other/Old Records Reveals: Labs, Records, Operative Reports and Discharge Summary
Source: patient, records and spouse
Patient Management
Discussion with other providers: Brake Engineer (Case discussed with cardiology)
ED Attending Note
-
Portions of this chart may have been created with voice recognition software.� Occasional wrong word or��sound alike� substitutions may have occurred due to the inherent limitations of voice recognition software.
Discharge Plan
Departure
Patient Disposition: Home (Routine Discharge)
Date of Disposition: 05/18/24
Time of Disposition: 12:49
Patient with high blood pressure during this ER visit?: No
Discharge Problem:
Chest pain
Instructions: Chest Pain DCA Follow Up
Prescriptions:
No Action
tetrahydrozoline [Visine] 0.05 % Drops
1 - 2 drp BOTH EYES DAILYPRN PRN (Reason: dry eyes)
ibuprofen [Motrin IB] 200 mg Tablet
400 mg PO DAILYPRN PRN (Reason: mild pain)
albuterol sulfate 90 mcg/actuation Hfa Aerosol Inhaler
2 puff INHALATION R Q4HPRN PRN (Reason: sob/wheezing)
Medical Marijuana
20 inh inhalation QPMPRN PRN (Reason: anxiety)
Medical Marijuana
1 gummy PO HSPRN PRN (Reason: anxiety)
prasugrel 10 mg Tablet
10 mg PO DAILY Qty: 90 3RF
atorvastatin 40 mg Tablet
40 mg PO QPM Qty: 90 3RF
aspirin [Children's Aspirin] 81 mg Tablet,Chewable
81 mg PO DAILY Qty: 90 3RF
nitroglycerin 0.4 mg Tablet, Sublingual
0.4 mg sublingual [id number] PRN (Reason: chest pain) Qty: 25 2RF
metoprolol succinate 25 mg Tablet Extended Release 24 Hr
25 mg PO DAILY Qty: 90 3RF
lisinopril 2.5 mg tablet
2.5 mg PO DAILY Qty: 90 3RF
acetaminophen-codeine 300-15 mg tablet
1 tab PO Q4H PRN (Reason: moderate-severe pain) Qty: 10 0RF
oxycodone 5 mg tablet
5 mg PO Q6H PRN (Reason: Pain) Qty: 8 0RF
doxycycline hyclate 100 mg capsule
100 mg PO BID Qty: 13 0RF
Referrals:
Dashawn Kirk MD [Active] - Call in 1-3 days for appt
Mell Ponce MD [Family Provider] -
Activity Restrictions/Additional Instructions:
Thank you for visiting the Emergency Department at [facility].
1. Please schedule a follow up appointment as directed. Call first thing tomorrow morning to make an appointment.
2. If indicated, please take your medications as instructed and indicated on discharge paperwork.
3. If any of your symptoms do not improve, or persist, or become more severe within 6-12 hours, please return to the emergency department for further care.
4. Please return to the emergency department if you develop a headache, neck pain/stiffness, fever greater than 100.4F, chest pain, shortness of breath, persistent nausea, vomiting, slurred speech, difficulty walking, numbness/tingling, weakness,
signs of infection or any other symptoms that are worrisome to you.
Please call [phone] if you have any questions.
Interventions
Interventions:
*Risk Screen - Suicide Last Done: 05/18/24 08:19
*General Assessment Last Done: 05/18/24 08:42
ED- Fall Risk Assessment Last Done: 05/18/24 08:42
*ED COVID-19 Vaccine History Last Done: 05/18/24 08:42
ED- Cardiac Assessment Last Done: 05/18/24 08:42
Discharge Date and Time
Print Language: AZERI
[2024-05-18 09:26] LABS: % Basophils 0.3 % (0-2); % Eosinophils 0.3 % (0-6); % Immature Granulocytes 0.3 % (0-0.5); % Lymphocytes 37.1 % (20.5-51.1); % Monocytes 5.3 % (1.7-9.3); % Neutrophils 56.7 % (42.2-75.2); Absolute Lymphocytes 2.4 10^3/uL (1.2-3.4); Absolute Monocytes 0.3 10^3/uL (0.1-0.6); Absolute Neutrophils 3.6 10^3/uL (1.4-6.5); Hematocrit 35.1 % (37.0-47.0); Mean Corp Hgb Conc. 34.2 g/dL (33.0-37.0); Nucleated Red Blood Cells % 0 %; Platelet Count 286 10^3/uL (130-400); Red Blood Cell Count 4.28 10^6/uL (4.20-5.40); Red Cell Dist. Width 12.7 % (11.5-14.5); White Blood Cell Count 6.4 10^3/uL (4.8-10.8)
[2024-05-18 09:37] LABS: ALT (SGPT) 34 U/L (0-35); AST (SGOT) 32 U/L (14-36); Albumin 4.3 g/dl (3.5-5.0); Alkaline Phosphatase 105 U/L (38-126); Blood Urea Nitrogen 9 mg/dl (7-17); Calcium 9.3 mg/dl (8.4-10.2); Carbon Dioxide 24 mmol/L (22-30); Chloride 103 mmol/L (98-107); Estimated Creatinine Clearance 120 ml/min; Glucose 198 mg/dl (70-99); Potassium 4.1 mmol/L (3.5-5.1); Sodium 139 mmol/L (135-145); Total Bilirubin 0.7 mg/dl (0.2-1.3); eGFR > 60.00
[2024-05-18 09:48] LABS: Troponin I < 0.012 ng/ml
[2024-05-18 10:00] VITALS: BP 119/75
[2024-05-18 11:00] VITALS: BP 121/68
--- NOTE | 2024-05-18 11:37 | CON.CAR ---
Consultation
Consultation Request
Date/Time Consultation Requested: 05/18/24, 9:00 AM
Date/Time Consultation Performed: 05/18/24, 10:58 AM
Requesting Provider: Dr Grossman
Performing Provider: DR Kirk
Reason for Consultation: chest pains
Medical History
-
Chief Complaint: chest pain
History of Present Illness:
49-year-old female with past medical history of non-STEMI, multivessel coronary arteries, PCI of the LAD and diagonal who presents back to [facility] with chest pains and jaw pains. She states that over the past several weeks she has been
very anxious and has been having intermittent episodes of a chest ache which is worse with deep breaths and positional changes. The pain also sometimes goes up into her upper jaw. The pain was waxing and waning and today she called the office and
they referred here to [facility] emergency room for further evaluation. She currently feels better. She denies any orthopnea, PND, or edema. She has noticed dyspnea on exertion with walking up and down stairs. She is moving out of her
house and has a lot of stress and anxiety currently. She has been compliant with her medication. Her blood pressure has been somewhat labile. She has no bleeding. She is been compliant with her medication. She has no fevers or chills. She has
no coughing or wheezing.
Past Medical History
Past Medical History: CAD ( Myocardial infarction, PCI of LAD and diagonal with 40 to 50% OM1 and 60 to 70% RPL 12/02), GERD, Hypercholesterolemia and Other (anxiety)
Past Surgical History: Gynecological (D and E )
Social History
Tobacco: Non-Smoker
Alcohol: None
Drug: Marijuana (medical )
Personal:
Living: With Family
Family History
Family History: CAD
Allergies / Home Medications
Allergy/AdvReac Type Severity Reaction Status Date / Time
fluticasone propionate Allergy Unknown Verified 05/18/24 08:19
[From Advair Diskus]
salmeterol xinafoate Allergy Unknown Verified 05/18/24 08:19
[From Advair Diskus]
�Medication �Instructions �Recorded �Confirmed �Type
Medical Marijuana 1 gummy PO HSPRN PRN anxiety 11/19/23 11/19/23 History
Medical Marijuana 20 inh inhalation QPMPRN PRN 11/19/23 11/19/23 History
anxiety
albuterol sulfate 90 mcg/actuation 2 puff inhalation R Q4HPRN PRN 11/19/23 11/19/23 History
aerosol inhaler sob/wheezing
ibuprofen 200 mg tablet (Motrin IB) 400 mg PO DAILYPRN PRN mild pain 11/19/23 11/19/23 History
tetrahydrozoline 0.05 % eye drops 1 - 2 drp BOTH EYES DAILYPRN PRN 11/19/23 11/19/23 History
(Visine) dry eyes
acetaminophen 300 mg-codeine 15 mg 1 tab PO Q4H PRN moderate-severe 11/21/23 Rx
tablet pain #10 tabs
aspirin 81 mg chewable tablet 81 mg PO DAILY #90 tabs 11/21/23 Rx
(Children's Aspirin)
atorvastatin 40 mg tablet 40 mg PO QPM #90 tabs 11/21/23 Rx
lisinopril 2.5 mg tablet 2.5 mg PO DAILY #90 tabs 11/21/23 Rx
metoprolol succinate 25 mg 25 mg PO DAILY #90 tabs 11/21/23 Rx
tablet,extended release 24 hr
nitroglycerin 0.4 mg sublingual 0.4 mg sublingual [id number] PRN 11/21/23 Rx
tablet chest pain #25 tabs
prasugrel 10 mg tablet 10 mg PO DAILY #90 tabs 11/21/23 Rx
oxycodone 5 mg tablet 5 mg PO Q6H PRN Pain #8 tabs 11/25/23 Rx
doxycycline hyclate 100 mg capsule 100 mg PO BID #13 caps 03/09/24 Rx
Review of Systems
-
History Source: Patient
Constitutional: Fatigue
EENT: No Symptoms
Respiratory: Trouble Breathing
Cardiac: Chest Pain
Abdomen/GI: No Symptoms
: No Symptoms
Musculoskeletal: No Symptoms
Skin: Other (Raynauds)
Neurological: No Symptoms
Endocrine: No Symptoms
Hematologic/Lymphatic: No Symptoms
Physical Exam
Vital Signs
Temp Pulse Resp BP Pulse Ox
98.6 F 69 18 119/75 98
05/18/24 08:19 05/18/24 10:00 05/18/24 10:00 05/18/24 10:00 05/18/24 10:00
Lab Results
05/18/24 09:17
05/18/24 09:17
Troponin I < 0.012 ng/ml 05/18/24 09:17
Physical Exam
General: Well Developed, Well Nourished and No Apparent Distress
HEENT: Normocephalic and Anicteric
Respiratory: Clear and Non Labored Respirations
Cardiac: S1/S2, Regular Rhythm and Murmur (None)
GI: Soft, Non Tender and Non Distended
Genito-urinary: No Costovertebral Tender
Skin: Warm and Dry
Neuro: AO x 3
Psych: Calm
Impression / Plan
-
Assess:
CAD/NC, LAD/D1 PCI 12/02 With residual disease in OM 40 to 50% and RPL 60 to 70%
Lipids
GERD
ANxiety
Echo 11/19/23: EF 55%, mid-apical anteroseptal hypo, no signif valve dx
Plan:
She presents with chest pains and dyspnea on exertion. She does have a history of coronary artery disease. Her EKG is normal and first troponin is negative. We agreed we will check a second troponin if this is also normal she would be stable for
discharge.
We agree that we will proceed with an exercise nuclear stress test to better stratify her and look for any ischemia in her OM or RPL territory. She has been compliant with her medications.
Her blood pressure is stable. I will continue the lisinopril and metoprolol for now.
Continue aspirin and prasugrel.
Continue high-dose atorvastatin.
She likely would benefit from an anxiety medicine. She is going to discuss this with her primary care physician.
Data Reviewed
-
EKG: Report Reviewed by me
Medical Tests (Nuc Med, Echo etc): Report Reviewed by me
Labs: Labs Reviewed by me
Old Records: Reviewed
[2024-05-18 12:00] VITALS: BP 119/95
[2024-05-18 12:48] LABS: Troponin I < 0.012 ng/ml
[2024-05-18 13:00] VITALS: BP 113/79
== END 2024-05-18 13:16 | disposition home or self-care (01) ==
LOC: EMR 08:09
PROVIDERS: EMERGENCY PHYSICIAN Emergency Medicine; FAMILY PHYSICIAN Family Medicine; OTHER PHYSICIAN Internal Medicine Cardiovascular Disease
DX: R07.89 Other chest pain (principal); I10 Essential (primary) hypertension; I25.10 Atherosclerotic heart disease of native coronary artery without angina pectoris
CPT/HCPCS: 99285; 71046; 80053; 84484; 85025; 93005

== ENCOUNTER 2025-03-29 21:32 | Inpatient (IN) | payer BC, SELFPAY ==
[2025-03-29] VITALS (7 sets, daily range): BP systolic 125–160; BP diastolic 65–108; BMI 33.4; BMI 32.7
[2025-03-29 17:02] LABS: Hematocrit 40.5 % (37.0-47.0); Hemoglobin 13.7 g/dL (12.0-16.0); Mean Corp Hgb Conc. 33.8 g/dL (33.0-37.0); Mean Corpuscular Volume 82.7 fL (81.0-99.0); Nucleated Red Blood Cells % 0 %; Platelet Count 303 10^3/uL (130-400); Red Cell Dist. Width 12.6 % (11.5-14.5)
[2025-03-29 17:10] LABS: HCG, Serum Qualitative Screen Negative
[2025-03-29 17:24] LABS: ALT (SGPT) 25 U/L (0-35); AST (SGOT) 24 U/L (14-36); Albumin 4.7 g/dl (3.5-5.0); Alkaline Phosphatase 78 U/L (38-126); Amylase 363 U/L (30-110); Blood Urea Nitrogen 13 mg/dl (7-17); Calcium 9.9 mg/dl (8.4-10.2); Carbon Dioxide 26 mmol/L (22-30); Chloride 99 mmol/L (98-107); Glucose 122 mg/dl (70-99); Lipase 1647 U/L (23-300); Potassium 4.4 mmol/L (3.5-5.1); Sodium 135 mmol/L (135-145); Total Protein 8.1 g/dl (6.3-8.2); eGFR > 60.00
[2025-03-29 17:26] LABS: Troponin I < 0.012 ng/ml
--- NOTE | 2025-03-29 18:40 | ED.GENMED ---
History of Present Illness
General
Chief Complaint: Abdominal Pain
Source: patient
Exam Limitations: none
Time Seen by Provider: 03/29/25 18:40
Nursing documentation reviewed up to this point in time: agreed with
History of Present Illness
History of Present Illness:
49-year-old female with history of HTN, [place], GERD, anxiety, cardiac stents times 10/2023, known gallstones, presents with abdominal pain and vomiting. The first episode of vomiting occurred 5 days ago. She reports a history of intermittent abdominal
pain with vomiting for 8 mos, known gallstones identified via imaging; however, a surgeon expressed doubt about the gallstones being the cause of her symptoms. The patient began taking Manjaro last week, starting with a single 2.5 mg dose 7 days
ago, had lab work done next day at [facility] and Amylase was 370. 5 days ago, on night, she vomited profusely and subsequently felt weak through Friday and Friday. The patient underwent an emergency root canal on Friday and took pain
medication without food, resulting in another vomiting episode. Vomiting recurred on Friday. The patient reports persistent abdominal discomfort and feelings of bloating, stating, 'my stomach feels way bigger than it even did this morning.' She
rates her pain as a 5 out of 10 and describes it as centered in the mid upper abdomen. She has not taken medication for the pain.
Past History
Past History
ED Past Medical History: Asthma, GERD and [place]
ED Past Surgical History: Cardiac, Orthopedic and Other
Social History
Tobacco: Non-smoker
Alcohol: None
Drug: None
Personal:
Living: with family
Employment: Other
Family History
Family History: Negative Early CAD
Review of Systems
Review of Systems
Allergies reviewed?: Yes
All Other Systems: ROS reviewed and negative except as documented in HPI and ROS
Constitutional: Denies fever
ABD/GI: Reports abdominal pain, nausea and vomiting
Skin: Reports no symptoms
Phy Exam
Physical Exam
Physical Exam:
No other significant finding GENERAL: No acute distress. A&Ox3.
CONSTITUTIONAL: Afebrile.
EYES: clear, conjunctivae normal
ENMT: moist mucus membranes, Pharynx nl
RESPIRATORY: Regular respirations, nonlabored, lungs clear.
CARDIOVASCULAR: Regular rate and rhythm, no murmurs, no rubs.
GI: Soft,Tender mid upper abdomen, normal BS
MUSCULOSKELETAL: Moves with ease. Well perfused.
SKIN: Warm, dry, pink
PSYCH: Normal mood and affect. Well kept, interactive and appropriate
NEUROLOGIC: Awake, alert and oriented. No focal neurological deficits
Course
Orders/Labs/Results
Orders:
Orders
03/29/25 Dinner
NPO
Allow oral meds: Yes
Allow clear liquids: Sips of Clears
NPO with Ice Chips: Yes
03/29/25 16:41
Test Result ONCE
03/29/25 16:43
Electrocardiogram (*1) Urgent
Reason for Study: Abdominal Pain
EKG- Treatment ONCE
03/29/25 16:49
Amylase Urgent
Complete Blood Count/With Diff Urgent
Comprehensive Metabolic Panel Urgent
HCG, Serum Qualitative Screen Urgent
Lipase Urgent
Troponin I Urgent
03/29/25 18:58
US Abdomen Complete/Upper Urgent
Comment:
Reason For Exam: pancreatitis, known gall stones
03/29/25 19:40
0.9% Sodium Chloride 1000 ml [Nss] 1,000 ml IV BOLUS
03/29/25 21:15
Admit/Transfer Patient As Directed
Co-Sign Provider:
Level of Care: Inpatient admission
Assign to:: Medical/Surgical
Physician / Group: [id number]
Diagnosis: acute pancreatitis
Reason for Hospitalization: acute pancreatitis
Expected length of stay greater than two midnights?: Yes
ELOS- Estimated Length of Stay in days: 2
I certify the patient meets the requirements for IP care: Yes
PRN Pain Medication Management As Directed
May give lesser potent ordered pain med per pt: Yes
preference::
Protocol:: Medication orders for pain may be administered in a
manner that supports deferring to patient preference
when the pt is:
- Requesting an ordered lesser potent pain medication.
Least to most potent pain medications are defined
as: acetaminophen < NSAID < tramadol < opioids
(morphine, oxycodone, hydromorphone).
- Requesting a lesser dose of the same medication IF
ORDERED.
- Requesting a less intrusive route of administration
if both routes are prescribed by the provider (PO <
IV).
03/29/25 21:16
Code Status As Directed
Resuscitation Status: Full Code
03/29/25 21:21
Rosuvastatin Calcium [Crestor] 40 mg PO NOW STA
03/29/25 22:01
Acetaminophen [Tylenol] 650 mg PO Q4HPRN PRN
Docusate W/Senna [Senokot-S] 1 tablet PO BIDPRN PRN
HYDROmorphone [Dilaudid] 0.5 mg IV Q4HPRN PRN
Lactated Ringers [Lr] 1,000 ml IV 100 mls/hr
Ondansetron Injectable [Zofran] 4 mg IV Q6HPRN PRN
Oxycodone [Roxicodone] 5 mg PO Q4HPRN PRN
Polyethylene Glycol Powder [Miralax] 17 grams PO DAILYPRN PRN
03/29/25 22:01
Activity As Directed
Activity Level: With Assistance
Vital Signs As Directed
Frequency: Per unit guidelines
Pulse Ox/spot Check [RESP] Routine
Quantity: 1
DX Deep Vein Thrombosis Video Routine
03/30/25 07:36
Complete Blood Count/No Diff IN AM
03/30/25 08:00
Aspirin Chewable [Low Strength Aspirin] 81 mg PO DAILY
Lisinopril [Zestril] 2.5 mg PO DAILY
Metoprolol Xl [Toprol Xl] 25 mg PO DAILY
03/30/25 18:00
Enoxaparin Sodium [Lovenox] 40 mg SC QPM
Rosuvastatin Calcium [Crestor] 40 mg PO QPM
Abnormal Lab Results
03/29/25
16:49
Glucose 122 H mg/dl
(70-99)
Amylase 363 H U/L
(30-110)
Lipase 1647 H* U/L
(23-300)
03/29/25 16:49
03/29/25 16:49
Vital Signs
Initial and Last Documented VS:
Initial Vital Signs
Temp Pulse Resp BP Pulse Ox
98.4 F 91 18 160/108 97
03/29/25 16:38 03/29/25 16:38 03/29/25 16:38 03/29/25 16:38 03/29/25 16:38
Last Documented Vital Signs
Temp Pulse Resp BP Pulse Ox
98.2 F 83 16 111/69 95
03/30/25 22:59 03/30/25 22:59 03/30/25 22:59 03/30/25 22:59 03/30/25 22:59
MDM/Problems Addressed
Differential Diagnosis Includes:
Gallstone disease, Mounjaro induced vomiting, acute pancreatitis, gastroenteritis, GERD, gastroparesis
MDM/Problems Addressed:
49-year-old female with history of HTN, [place], GERD, anxiety, cardiac stents times 10/2023, known gallstones, presents with abdominal pain and vomiting. The first episode of vomiting occurred 5 days ago. She reports a history of intermittent abdominal
pain with vomiting for 8 mos, known gallstones identified via imaging; however, a surgeon expressed doubt about the gallstones being the cause of her symptoms. The patient began taking Manjaro last week, starting with a single 2.5 mg dose 7 days
ago, had lab work done next day at [facility] and Amylase was 370. 5 days ago, on night, she vomited profusely and subsequently felt weak through Friday and Friday. The patient underwent an emergency root canal on Friday and took pain
medication without food, resulting in another vomiting episode. Vomiting recurred on Friday. The patient reports persistent abdominal discomfort and feelings of bloating, stating, 'my stomach feels way bigger than it even did this morning.' She
rates her pain as a 5 out of 10 and describes it as centered in the mid upper abdomen. She has not taken medication for the pain.
EKG NSR
CBC normal
CMP amylase 363, lipase 1647, otherwise normal
hCG negative
8:30 PM: Ultrasound radiology report read: IMPRESSION: Cholelithiasis. No gallbladder wall thickening or biliary tract dilatation. Negative sonographic Mchugh's sign.
Pancreas significantly obscured, most likely by
Bowel gas.
Plan: Admit: Acute pancreatitis
Hospitalist notified of admission
*Pulse Oximetry
SaO2: 97
Oxygen Mode of Delivery: Room air
Patient hypoxic: not evaluated
*Critical Care Note
Total Time (30-74mins, 75-104mins- exclusive of procedures): Not Applicable
ED Attending Note
-
Portions of this chart may have been created with voice recognition software.� Occasional wrong word or��sound alike� substitutions may have occurred due to the inherent limitations of voice recognition software.
Discharge Plan
Departure
Patient Disposition: Admit
Date of Disposition: 03/29/25
Time of Disposition: 20:38
Admit to: Med/Surg
Presentation/result/management discussed w/ accepting MD/DO: Hospitalist
Condition: Fair
Discharge Problem:
Acute pancreatitis
Interventions
Interventions:
*Risk Screen - Suicide Last Done: 03/29/25 23:13
*General Assessment Last Done: 03/29/25 16:38
*Neglect/Abuse Screening Last Done: 03/29/25 18:46
*ED- Fall Risk Assessment Last Done: 03/29/25 18:46
*ED COVID-19 Vaccine History Last Done: 03/29/25 18:46
*Nursing Disposition Last Done: 03/29/25 22:39
MW-Sbtuas-Honchrhdfu Assessment Last Done: 03/29/25 18:46
Discharge Date and Time
Discharge Date/Time: 03/29/25 22:39
[2025-03-29] MEDS: NSS 1000 IV (20:02)
--- NOTE | 2025-03-29 20:49 | HPS.HSE ---
Family Physician
-
Family Physician: Mell Ponce
Chief Complaint
-
Abdominal pain
History of Present Illness
This is a 49-year-old past medical history of CAD status post PR and stenting 1 year ago, diabetes not on insulin, hypertension hyperlipidemia who presents to the emergency department with 3 days of acute epigastric abdominal pain.
Patient reported that she started taking Mounjaro about 2 weeks ago and she started at the initial dosing. However immediately after starting the medication started having some abdominal symptoms including bloating and abdominal discomfort.
However 3 days ago she reported severe epigastric pain radiating to the back and associated with nausea and vomiting. Since then she has not been able to tolerate any p.o. Any attempted eating results in severe epigastric pain nausea plus
vomiting. She denies any diarrhea. Has not had any fevers or chills. She denies any changes to the color of her skin. She denies any flank pain. She denies any urinary discomfort.
Patient denies any alcohol use. She denies any history of pancreatitis. She does report she has known gallstone.
In the emergency department she was afebrile, blood pressure was 125/70 with a pulse rate of 76 and she was satting 98% on room air. CBC was unremarkable electrolytes. Creatinine was normal. ECG shows normal sinus rhythm at a rate of [address] or T wave changes. LFTs were normal. Lipase was elevated at 1647. Ultrasound shows cholelithiasis without choledocholithiasis. There is no evidence of acute cholecystitis.
Medical History
Past Medical History
Past Medical History: Reports Asthma, CAD (Status post PR with stent placed in November 2023), GERD and Other (Cholelithiasis)
Past Surgical History: Reports Other
Social History
Tobacco: Non-smoker
Alcohol: Occasional
Drug: None
Living: With Family
Family History
Family History: Not pertinent
Allergies / Home Medications
Allergies reflects when Allergies were last updated in [facility].
Home Medications with original date entered in [facility]
Allergy/Medication List:
Allergies
Allergy/AdvReac Type Severity Reaction Status Date / Time
fluticasone propionate (From Allergy Unknown Verified 03/29/25 16:40
Advair Diskus)
salmeterol xinafoate (From Allergy Unknown Verified 03/29/25 16:40
Advair Diskus)
Home Medications
metFORMIN HCl 1000 MG 1 tablet with a meal Orally Once a day Active
Rosuvastatin Calcium 40 MG 1 tablet Orally Once a day for 30 days Feb, Active
Pristiq 50 MG 1 tablet Orally Once a day Active
Medical Cannabis Nightly Active
Lisinopril 2.5 MG 1 tablet Orally Once a day for 90 days Active
Pantoprazole Sodium 20 MG 1 tablet 1/2 to 1 hour before morning meal Orally Once a day Active
Desvenlafaxine Succinate ER 25 MG 1 tablet Orally Once a day Not started yet - checking with cardio Not-Taking/PRN
Albuterol Sulfate 108 (90 Base) MCG/ACT 1 puff as needed Inhalation every 4 hrs PRN Active
Metoprolol Succinate ER 25 MG 1 tablet Orally Once a day for 90 days Active
Nitroglycerin 0.4 MG take 1 tab subl at sign of CP. May repeat 5 min up to 3 times Sublingual as needed PRN Active
Mounjaro 2.5 MG/0.5ML as directed Subcutaneous starting 03/22 Active
Prasugrel HCl 10 MG 1 tab Orally daily for 90 days stopped Not-Taking/PRN
Aspirin 81 81 MG 1 tablet Orally Once a day for 90 days Active
Review of Systems
-
Constitutional: Reports No Symptoms
EENT: Reports No Symptoms
Respiratory: Reports No Symptoms
Cardiac: Reports No Symptoms
Abdomen/GI: Reports Abdominal Pain, Nausea and Vomiting
: Reports No Symptoms
Musculoskeletal: Reports No Symptoms
Skin: Reports No Symptoms
Neurological: Reports No Symptoms
Endocrine: Reports No Symptoms
Hematologic/Lymphatic: Reports No Symptoms
Psych: Reports No Symptoms
Physical Exam
Vital Signs
Vital Signs
Temp Pulse Resp BP Pulse Ox
98.4 F 76 14 125/78 100
03/29/25 16:38 03/29/25 20:30 03/29/25 20:30 03/29/25 20:01 03/29/25 20:30
Physical Exam
General: Well Developed, Well Nourished and No Apparent Distress
HEENT: NormoCephalic, Moist mucous membranes and Atraumatic
Respiratory: Clear
Cardiac: S1/S2 and Regular Rhythm; No Murmur or Rub
GI: Soft, Non Tender, Non Distended and Normal Bowel Sounds; No Organomegaly
Rectal: Deferred by Provider
Musculoskeletal: No Clubbing, No Cyanosis and No Edema
Skin: No Rash
Neuro: Nonfocal/grossly intact
Laboratory Results
-
03/29/25 16:49
03/29/25 16:49
Laboratory Results
Total Bilirubin 0.9 mg/dl (0.2-1.3) 03/29/25 16:49
AST 24 U/L (14-36) 03/29/25 16:49
ALT 25 U/L (0-35) 03/29/25 16:49
Alkaline Phosphatase 78 U/L (38-126) 03/29/25 16:49
Troponin I < 0.012 ng/ml 03/29/25 16:49
Lipase 1647 U/L (23-300) H* 03/29/25 16:49
Data Reviewed
-
Ultrasound: Report Reviewed by me
Medical Tests (Nuc Med, Echo, EKG etc): Image Personally Visualized and interpreted
Lab Data: Labs Reviewed by me
Old Records: Reviewed
Impression/Plan
-
IMPRESSION:
49-year-old with past medical history significant for CAD status post PR with stenting 1 year ago, [id number] diabetes presenting to the emergency department with epigastric pain after recently starting Mounjaro and found to have acute
pancreatitis. She does have cholelithiasis without choledocholithiasis. LFTs were all normal. She denies any alcohol use. No other new medication changes. Picture consistent with acute pancreatitis without pancreatic necrosis or significant
fluid collection consistent with an uncomplicated pancreatitis. Cannot delineate between now possibility of gallstones versus GLP-1 agonist effect. However patient has no parotid gland phthisis and no LFT abnormalities to suggest gallstone
pancreatitis being the primary etiology.
PLAN:
Acute pancreatitis
-Admit to MedSurg
-N.p.o. for now
-IV with LR
-Pain control and antiemetics
-Holding and stopping Mounjaro for now
-Trend LFTs
-Consider surgical evaluation before discharge
CAD status post PR
-No acute chest pain, continue aspirin statin and metoprolol
Diabetes
-Hold metformin
-Sliding scale insulin Q6
DVT prophylaxis�Lovenox subcu
CODE STATUS�full code
[2025-03-29] MEDS: CRESTOR 40 MG PO (21:26)
--- NOTE | 2025-03-29 23:00 | PTCARENOTE ---
Patient arrived to [facility]- from ED via wheelchair, ambulated to bed without difficulty, alert and oriented. Patient c/o headache and nausea upon arrival, 3/10 pain to abdomen while resting in bed but worse with activity. Patient requesting medication
at this time for acid reflux and for sleep. Patient upset on arrival that she was only given IVFs in ED, no other medications to aid in symptoms while in ED. Notified DUNIA Varma of patient request for sleep aid and acid marketing ambassador. PRN Tums
ordered and provided to patient, stat one time melatonin ordered and provided. Tylenol PRN given for headache and initiated on IVFs per orders. Call mayfield in reach, will monitor.
[2025-03-29] MEDS: TYLENOL 650 MG PO (23:29)
[2025-03-29] MEDS: LR 1000 IV (23:29)
[2025-03-29] MEDS: ZOFRAN 4 MG IV (23:30)
[2025-03-29] MEDS: MELATONIN 5 MG PO (23:46)
[2025-03-29] MEDS: TUMS CHEWABLE TABLET 200 MG PO (23:46)
--- NOTE | 2025-03-30 03:13 | DOWNTIME ---
There was a [employer] Client Voting Machine Repairer Downtime on 03/30/2025 from 0100 to 03/30/2025 at 0235. Downtime documentation of patient's care, including medication administrations, has been reconciled in the electronic record per guidelines. Refer to the
patient's paper chart under the miscellaneous tab to see printed paper medication records and downtime forms.
--- NOTE | 2025-03-30 05:14 | PTCARENOTE ---
Assumed care of patient at 0300. Assessment unchanged from previous. Observed resting w/eyes closed and even respirations. Call mayfield w/in reach, able to make needs known.
[2025-03-30] MEDS: LR 1000 IV ×3 (05:53→20:30)
[2025-03-30 07:00] VITALS: BP 102/62
[2025-03-30 07:58] LABS: Hematocrit 39.8 % (37.0-47.0); Hemoglobin 13.2 g/dL (12.0-16.0); Mean Corp Hgb Conc. 33.2 g/dL (33.0-37.0); Mean Corpuscular Volume 85.2 fL (81.0-99.0); Platelet Count 226 10^3/uL (130-400); Red Cell Dist. Width 12.6 % (11.5-14.5)
[2025-03-30 08:28] LABS: ALT (SGPT) 23 U/L (0-35); AST (SGOT) 19 U/L (14-36); Albumin 3.9 g/dl (3.5-5.0); Alkaline Phosphatase 85 U/L (38-126); Blood Urea Nitrogen 9 mg/dl (7-17); Calcium 9.5 mg/dl (8.4-10.2); Carbon Dioxide 25 mmol/L (22-30); Chloride 108 mmol/L (98-107); Estimated Creatinine Clearance > 125 ml/min; Glucose 106 mg/dl (70-99); HDL Cholesterol 35 mg/dl; LDL Cholesterol, Calculated 36 mg/dl; Potassium 4.3 mmol/L (3.5-5.1); Sodium 139 mmol/L (135-145); Total Protein 6.8 g/dl (6.3-8.2); Very Low Density Lipoprotein 22 mg/dl (0-30); eGFR > 60.00
--- NOTE | 2025-03-30 08:43 | W.PN.HOSP.TC ---
Today's Communication/Plan
-
See PN
Assessment / Plan
Assessment / Plan
49yo F with PMHX of NSTEMI , CAD 2/2 multivessel disease s/p PCI (on aspirin) came with nausea and vomiting for 5 days, found acute pancreatitis. Patient has a long standing Hx of recurrent episodic vomiting and previously was seen by [facility] for
cholelithiasis and GI with scheduled colonoscopy. Also developed significant GI symptoms in 2023 after initiation of Wegovy and now had fist injection of Mounjaro 1 week before symptoms onset.
A/P:
#Acute calculous pancreatitis
Ca wnl
Tryglicerides 113
[facility] for eval for cholecystectomy
IVF
advance diet as tolerated
Antiemetics
#CAD, stable
#Anxiety d/o
#HLD
cont home meds
DVT ppxlovenox
Full code
I have spent at least 52min reviewing chart, test results, communication with consultants and providing direct patient care
Anticipated Discharge: > 48 hours
Subjective/Interval History
-
Date of Service: March 30, 2025
Objective Data
-
Labs:
Laboratory Results
03/30/25
07:36
WBC 5.6
Hgb 13.2
Hct 39.8
Plt Count 226 D
Sodium 139
Potassium 4.3
Chloride 108 H
Carbon Dioxide 25
BUN 9
Creatinine 0.6
Glucose 106 H
Calcium 9.5
Total Bilirubin 0.8
AST 19
ALT 23
Alkaline Phosphatase 85
Vital Signs:
Vital Signs
Temp Pulse Resp BP Pulse Ox
98.3 F 76 16 102/62 99
03/30/25 07:00 03/30/25 07:00 03/30/25 07:00 03/30/25 07:00 03/30/25 07:00
I&O
03/29/25 03/30/25 03/31/25
06:59 06:59 06:59
Intake Total 1230 / 1230
Balance 1230 / 1230
Review of Systems
-
History Source: Patient
All other systems: Reviewed and negative
Abdomen/GI: Reports Abdominal Pain
Physical Exam
-
General: No Apparent Distress
HEENT: Normocephalic
Respiratory: Clear to Auscultation
Cardiac: Regular Rhythm
GI: Soft, Nondistended and Tender (in epigastrium)
Musculoskeletal: No Clubbing, No Cyanosis and No Edema
Neuro: Awake, Alert, Oriented and AO x 3
Psych: Calm
[2025-03-30] MEDS: LOW STRENGTH ASPIRIN 81 MG PO (08:53)
[2025-03-30] MEDS: ZESTRIL 2.5 MG PO (08:53)
[2025-03-30] MEDS: TOPROL XL 25 MG PO (08:54)
[2025-03-30] MEDS: TUMS CHEWABLE TABLET 200 MG PO (08:57)
[2025-03-30] MEDS: ZOFRAN 4 MG IV (08:58)
--- NOTE | 2025-03-30 11:34 | CM ---
[facility] with daughter present. Patient states that she is normally independent of ADL's and IADL's. Patient has no DME at home. Patient PCP is Dr. Ponce and she uses the [facility] on [facility]. Patient plan is for
discharge home with no needs anticipated. CM will continue to follow for discharge planning needs.
Plan; home with no needs anticipated.
[2025-03-30] MEDS: NON-FORMULARY ITEM 1 TAB PO (11:53)
--- NOTE | 2025-03-30 13:41 | CON.GS ---
Consultation
-
Date/Time Consultation Performed: 03/30/25
Requesting Provider: Leslie
Performing Provider: Palbo
Reason for Consultation: Biliary pancreatitis
Medical History
-
Chief Complaint: Abd pain n/v
History of Present Illness:
49F with acute onset epigastric pain that began several days ago, a/w n/v. She started zepbound about a week ago. Denies changes to stool/urine. Known to me from office visit 3 months ago for incidental finding of elevated ALP outpt. At that time
her primary complaint was constant nausea with intermittent emesis and a/w sharp abd pain at the supra-umbilical area lasting <30 mins, self limited. Cards hx notable for MN and cath, prevously on DAPT now on ASA monotherapy. Plan at that time was
for GI f/u.
Past Medical History
Past Medical History: Other (Asthma. GERD. Anxiety. CAD - MN - stent placed 11/2023. R radial artery occlusion. Anxiety. Cataract. Gallstones.)
Past Surgical History: Other (Arthroscopy - left D+E termination Sinus Surgery Lower body lift and breast lift - [place] - 01/2022 Arm skin removal - [place] - 02/2022 Cardiac Angioplasty - 11/2023 Dental Surgery, right upper, bone graft 05/2024 cataracts gui
11/2024)
Social History
Tobacco: Former Smoker
Personal:
Living: With Family
Family History
Family History: Reviewed & Noncontributory
Allergies / Home Medications
Allergy/AdvReac Type Severity Reaction Status Date / Time
fluticasone propionate (From Allergy Unknown Verified 03/29/25 16:40
Advair Diskus)
salmeterol xinafoate (From Allergy Unknown Verified 03/29/25 16:40
Advair Diskus)
�Medication �Instructions �Recorded �Confirmed �Type
Medical Marijuana 1 gummy PO HSPRN PRN anxiety 11/19/23 11/19/23 History
Medical Marijuana 20 inh inhalation QPMPRN PRN 11/19/23 11/19/23 History
anxiety
albuterol sulfate 90 mcg/actuation 2 puff inhalation R Q4HPRN PRN 11/19/23 11/19/23 History
aerosol inhaler sob/wheezing
ibuprofen 200 mg tablet (Motrin IB) 400 mg PO DAILYPRN PRN mild pain 11/19/23 11/19/23 History
tetrahydrozoline 0.05 % eye drops 1 - 2 drp BOTH EYES DAILYPRN PRN 11/19/23 11/19/23 History
(Visine) dry eyes
acetaminophen 300 mg-codeine 15 mg 1 tab PO Q4H PRN moderate-severe 11/21/23 Rx
tablet pain #10 tabs
aspirin 81 mg chewable tablet 81 mg PO DAILY #90 tabs 11/21/23 Rx
(Children's Aspirin)
atorvastatin 40 mg tablet 40 mg PO QPM #90 tabs 11/21/23 Rx
lisinopril 2.5 mg tablet 2.5 mg PO DAILY #90 tabs 11/21/23 Rx
metoprolol succinate 25 mg 25 mg PO DAILY #90 tabs 11/21/23 Rx
tablet,extended release 24 hr
nitroglycerin 0.4 mg sublingual 0.4 mg sublingual [id number] PRN 11/21/23 Rx
tablet chest pain #25 tabs
prasugrel HCl 10 mg tablet 10 mg PO DAILY #90 tabs 11/21/23 Rx
oxycodone 5 mg tablet 5 mg PO Q6H PRN Pain #8 tabs 11/25/23 Rx
doxycycline hyclate 100 mg capsule 100 mg PO BID #13 caps 03/09/24 Rx
Review of Systems
-
A 10 point review of systems was completed, and was negative except as per HPI.
Physical Exam
Vital Signs
Temp Pulse Resp BP Pulse Ox
98.3 F 76 16 102/62 99
03/30/25 07:00 03/30/25 08:54 03/30/25 07:00 03/30/25 08:54 03/30/25 10:00
03/29/25 03/30/25 03/31/25
06:59 06:59 06:59
Actual Weight 100.289 kg
Body Mass Index (BMI) 32.7
Lab Results
03/30/25 07:36
03/30/25 07:36
WBC 5.6 10^3/uL (4.8-10.8) 03/30/25 07:36
Hgb 13.2 g/dL (12.0-16.0) 03/30/25 07:36
Hct 39.8 % (37.0-47.0) 03/30/25 07:36
Plt Count 226 10^3/uL (130-400) D 03/30/25 07:36
Abs Immat Gran (auto) 0.0 10^3/uL (0-0.05) 03/29/25 16:49
Neutrophils % 58.4 % (42.2-75.2) 03/29/25 16:49
Physical Exam
General: Well Developed, Well Nourished and No Apparent Distress
HEENT: Normocephalic and Anicteric
GI: Soft, Non Distended and Tender (moderate ttp tp epigastrium)
Skin: Warm and Dry
Neuro: AO x 3
Psych: Calm
Data Reviewed
-
Ultrasound: Image Personally Visualized and interpreted, Report Reviewed by me, Discussed with Patient and Discussed with Family
Labs: Labs Reviewed by me, Discussed with Patient and Discussed with Family
Old Records: Reviewed
Assessment / Plan
-
49F with biliary vs GLP-1 agonist induced pancreatitis
AFVSS, ttp on exam to epigastrium
LFTs WNL, no leukocytosis, lipase 1647 on admit
US with stones, no stigmata of ACC
Plan:
NPO/IVF
PRN pain meds/antiemetics
Serial abd exams
DVT ppx
Discuss CCY pros/cons when tenderness improves
[2025-03-30 15:00] VITALS: BP 114/73
--- NOTE | 2025-03-30 16:05 | CON.CAR ---
Addendum entered and electronically signed by Jonas Richter DO 03/30/25 21:05:
I saw and examined the patient.
The Wine Master's note was reviewed and I agree with the note.
Comment:
Plan:
Admitted with acute calculous pancreatitis. Prior to that patient denies any chest pain with activity. No REYES. She has hx of PCI November 2023. Cardiology consulted for cardiac risk assessment.
Check echo to reeval EF. If echo does not show significant changes from previous, then pt is acceptable risk for surgery. She is able to perform greater than 4 METs of activity without symptoms and is low cardiac risk for complication
ASA should be continued perioperatively.
Cont Toprol, Lisinopril and Crestor.
Discussed with family member at bedside.
PMH:
CAD
s/p KY and MV CAD by cardiac cath 11/19/2023
s/p 2.75 mm, 2.75 mm and 2.25 mm Xience TABITHA to the mid to distal LAD and 2.25 mm Xience TABITHA to the proximal Diag-1 11/20/2023 h/o right radial artery occlusion 11/2023
DM2
Hyperlipidemia
GERD
Anxiety
Past Medical History
Past Medical History: CAD ( Myocardial infarction, PCI of LAD and diagonal with 40 to 50% OM1 and 60 to 70% RPL 12/02), GERD, Hypercholesterolemia and Other (anxiety)
Past Surgical History: Gynecological (D and E )
Social History
Tobacco: Non-Smoker
Alcohol: None
Drug: Marijuana (medical )
Personal:
Living: With Family
Family History
Family History: CAD
Allergies / Home Medications
Allergy/AdvReac Type Severity Reaction Status Date / Time
fluticasone propionate (From Allergy Unknown Verified 03/29/25 16:40
Advair Diskus)
salmeterol xinafoate (From Allergy Unknown Verified 03/29/25 16:40
Advair Diskus)
�Medication �Instructions �Recorded �Confirmed �Type
Medical Marijuana 1 gummy PO HSPRN PRN anxiety 11/19/23 11/19/23 History
Medical Marijuana 20 inh inhalation QPMPRN PRN 11/19/23 11/19/23 History
anxiety
albuterol sulfate 90 mcg/actuation 2 puff inhalation R Q4HPRN PRN 11/19/23 11/19/23 History
aerosol inhaler sob/wheezing
ibuprofen 200 mg tablet (Motrin IB) 400 mg PO DAILYPRN PRN mild pain 11/19/23 11/19/23 History
tetrahydrozoline 0.05 % eye drops 1 - 2 drp BOTH EYES DAILYPRN PRN 11/19/23 11/19/23 History
(Visine) dry eyes
acetaminophen 300 mg-codeine 15 mg 1 tab PO Q4H PRN moderate-severe 11/21/23 Rx
tablet pain #10 tabs
aspirin 81 mg chewable tablet 81 mg PO DAILY #90 tabs 11/21/23 Rx
(Children's Aspirin)
atorvastatin 40 mg tablet 40 mg PO QPM #90 tabs 11/21/23 Rx
lisinopril 2.5 mg tablet 2.5 mg PO DAILY #90 tabs 11/21/23 Rx
metoprolol succinate 25 mg 25 mg PO DAILY #90 tabs 11/21/23 Rx
tablet,extended release 24 hr
nitroglycerin 0.4 mg sublingual 0.4 mg sublingual [id number] PRN 11/21/23 Rx
tablet chest pain #25 tabs
prasugrel HCl 10 mg tablet 10 mg PO DAILY #90 tabs 11/21/23 Rx
oxycodone 5 mg tablet 5 mg PO Q6H PRN Pain #8 tabs 11/25/23 Rx
doxycycline hyclate 100 mg capsule 100 mg PO BID #13 caps 03/09/24 Rx
Review of Systems
-
History Source: Patient and Family ( sitting bedside to help with HPI)
All other systems: Negative unless noted
Physical Exam
Vital Signs
Temp Pulse Resp BP Pulse Ox
97.8 F 73 18 114/73 97
03/30/25 15:00 03/30/25 15:00 03/30/25 15:00 03/30/25 15:00 03/30/25 15:00
General: NAD. AAO x3
HEENT: EOMI
Respiratory: RA. Clear anterolaterally without wheeze
Cardiac: Regular Rhythm and no murmur
GI: ND
Skin: Warm dry and pink no rash
Lab Results
03/30/25 07:36
03/30/25 07:36
Troponin I < 0.012 ng/ml 03/29/25 16:49
Impression / Plan
-
PCP: Dr. Mell Ponce
Cardiology: Dr. Kirk
Impression:
Admitted with epigastric pain and acute pancreatitis 03/29/2025
Acute calculous pancreatitis
CAD
s/p KY and MV CAD by cardiac cath 11/19/2023
s/p 2.75 mm, 2.75 mm and 2.25 mm Xience TABITHA to the mid to distal LAD and 2.25 mm Xience TABITHA to the proximal Diag-1 11/20/2023 h/o right radial artery occlusion 11/2023
DM2
Hyperlipidemia
GERD
Anxiety
Echo 11/19/23: EF 55%, mid-apical anteroseptal hypo, no signif valve dx
Plan:
-Patient came to the ER yesterday with epigastric pain and was admitted with acute pancreatitis, cardiology is consulted for the possibility of laparoscopic cholecystectomy. Patient was seen by general surgery months ago for possible gallbladder
disease and when she had seen Dr. Juan david in the office 11/2023 she even mentioned that cholecystectomy was a possibility, but patient reports that after she saw surgeon in the office they felt that cholecystectomy was not necessary. More
recently patient has been working with GI and was started on a GLP-1 for help with diabetes and weight loss and that within a week she had vomiting and ongoing symptoms that led to this admission where she was found to have acute calculous
pancreatitis. Prior to that patient denies any chest pain with activity. No REYES. Patient has a known history of CAD as outlined above. Last echo was 11/19/2023. Patient completed cardiac rehab without issue.
-ECG reviewed by me is SR without acute ST changes
-Troponin level checked on admission given symptoms, history of CAD and DM 2, but troponin was undetectable.
-No recent exertional symptoms to suggest angina. No evidence of ACS currently.
-Last echo was at the time of [place] in 11/2023, repeat echo ordered by me for the morning. Pending results patient should be able to proceed with surgery.
-Recommend perioperative telemetry monitoring, court recording monitor ordered by me now.
-Outpatient dose of aspirin 81 mg daily should be continued without interruption
-Outpatient dose of lisinopril 2.5 mg daily has been continued
-Outpatient dose of Toprol-XL 25 mg daily has been continued
-Outpatient dose of Crestor 40 mg daily has been continued
-Patient is mildly edematous, but no SOB or orthopnea. IVF's running at 150 ml/hr, TT communication with hospitalist attending and they are agreeable to decreasing the rate to 100 mL/hr
Original Note:
Consultation
Consultation Request
Date/Time Consultation Requested: 03/30/2025
Date/Time Consultation Performed: 03/30/2025
Requesting Provider: Dr. Nelson
Performing Provider: Dr. Richter
Reason for Consultation: Preoperative cardiovascular risk stratification, h/o CAD
Medical History
-
History of Present Illness:
Patient came to the ER yesterday with epigastric pain and was admitted with acute pancreatitis, cardiology is consulted for the possibility of laparoscopic cholecystectomy. Patient was seen by general surgery months ago for possible gallbladder
disease and when she had seen Dr. Juan david in the office 11/2023 she even mentioned that cholecystectomy was a possibility, but patient reports that after she saw surgeon in the office they felt that cholecystectomy was not necessary. More
recently patient has been working with GI and was started on a GLP-1 for help with diabetes and weight loss and that within a week she had vomiting and ongoing symptoms that led to this admission where she was found to have acute calculous
pancreatitis. Prior to that patient denies any chest pain with activity. No REYES. Patient has a known history of CAD as outlined above. Last echo was 11/19/2023. Patient completed cardiac rehab without issue.
PMH:
CAD
s/p [place] and MV CAD by cardiac cath 11/19/2023
s/p 2.75 mm, 2.75 mm and 2.25 mm Xience TABITHA to the mid to distal LAD and 2.25 mm Xience TABITHA to the proximal Diag-1 11/20/2023
h/o right radial artery occlusion 11/2023
DM2
Hyperlipidemia
GERD
Anxiety
Past Medical History
Past Medical History: CAD ( Myocardial infarction, PCI of LAD and diagonal with 40 to 50% OM1 and 60 to 70% RPL 12/02), GERD, Hypercholesterolemia and Other (anxiety)
Past Surgical History: Gynecological (D and E )
Social History
Tobacco: Non-Smoker
Alcohol: None
Drug: Marijuana (medical )
Personal:
Living: With Family
Family History
Family History: CAD
Allergies / Home Medications
Allergy/AdvReac Type Severity Reaction Status Date / Time
fluticasone propionate (From Allergy Unknown Verified 03/29/25 16:40
Advair Diskus)
salmeterol xinafoate (From Allergy Unknown Verified 03/29/25 16:40
Advair Diskus)
�Medication �Instructions �Recorded �Confirmed �Type
Medical Marijuana 1 gummy PO HSPRN PRN anxiety 11/19/23 11/19/23 History
Medical Marijuana 20 inh inhalation QPMPRN PRN 11/19/23 11/19/23 History
anxiety
albuterol sulfate 90 mcg/actuation 2 puff inhalation R Q4HPRN PRN 11/19/23 11/19/23 History
aerosol inhaler sob/wheezing
ibuprofen 200 mg tablet (Motrin IB) 400 mg PO DAILYPRN PRN mild pain 11/19/23 11/19/23 History
tetrahydrozoline 0.05 % eye drops 1 - 2 drp BOTH EYES DAILYPRN PRN 11/19/23 11/19/23 History
(Visine) dry eyes
acetaminophen 300 mg-codeine 15 mg 1 tab PO Q4H PRN moderate-severe 11/21/23 Rx
tablet pain #10 tabs
aspirin 81 mg chewable tablet 81 mg PO DAILY #90 tabs 11/21/23 Rx
(Children's Aspirin)
atorvastatin 40 mg tablet 40 mg PO QPM #90 tabs 11/21/23 Rx
lisinopril 2.5 mg tablet 2.5 mg PO DAILY #90 tabs 11/21/23 Rx
metoprolol succinate 25 mg 25 mg PO DAILY #90 tabs 11/21/23 Rx
tablet,extended release 24 hr
nitroglycerin 0.4 mg sublingual 0.4 mg sublingual [id number] PRN 11/21/23 Rx
tablet chest pain #25 tabs
prasugrel HCl 10 mg tablet 10 mg PO DAILY #90 tabs 11/21/23 Rx
oxycodone 5 mg tablet 5 mg PO Q6H PRN Pain #8 tabs 11/25/23 Rx
doxycycline hyclate 100 mg capsule 100 mg PO BID #13 caps 03/09/24 Rx
Review of Systems
-
History Source: Patient and Family ( sitting bedside to help with HPI)
All other systems: Negative unless noted
Physical Exam
Vital Signs
Temp Pulse Resp BP Pulse Ox
97.8 F 73 18 114/73 97
03/30/25 15:00 03/30/25 15:00 03/30/25 15:00 03/30/25 15:00 03/30/25 15:00
General: NAD. AAO x3
HEENT: EOMI
Respiratory: RA. Clear anterolaterally without wheeze
Cardiac: Regular Rhythm and no murmur
GI: ND
Skin: Warm dry and pink no rash
Lab Results
03/30/25 07:36
03/30/25 07:36
Troponin I < 0.012 ng/ml 03/29/25 16:49
Impression / Plan
-
PCP: Dr. Mell Ponce
Cardiology: Dr. Kirk
Impression:
Admitted with epigastric pain and acute pancreatitis 03/29/2025
Acute calculous pancreatitis
CAD
s/p [place] and MV CAD by cardiac cath 11/19/2023
s/p 2.75 mm, 2.75 mm and 2.25 mm Xience TABITHA to the mid to distal LAD and 2.25 mm Xience TABITHA to the proximal Diag-1 11/20/2023
h/o right radial artery occlusion 11/2023
DM2
Hyperlipidemia
GERD
Anxiety
Echo 11/19/23: EF 55%, mid-apical anteroseptal hypo, no signif valve dx
Plan:
-Patient came to the ER yesterday with epigastric pain and was admitted with acute pancreatitis, cardiology is consulted for the possibility of laparoscopic cholecystectomy. Patient was seen by general surgery months ago for possible gallbladder
disease and when she had seen Dr. Juan david in the office 11/2023 she even mentioned that cholecystectomy was a possibility, but patient reports that after she saw surgeon in the office they felt that cholecystectomy was not necessary. More
recently patient has been working with GI and was started on a GLP-1 for help with diabetes and weight loss and that within a week she had vomiting and ongoing symptoms that led to this admission where she was found to have acute calculous
pancreatitis. Prior to that patient denies any chest pain with activity. No REYES. Patient has a known history of CAD as outlined above. Last echo was 11/19/2023. Patient completed cardiac rehab without issue.
-ECG reviewed by me is SR without acute ST changes
-Troponin level checked on admission given symptoms, history of CAD and DM 2, but troponin was undetectable.
-No recent exertional symptoms to suggest angina. No evidence of ACS currently.
-Last echo was at the time of [place] in 11/2023, repeat echo ordered by me for the morning. Pending results patient should be able to proceed with surgery.
-Recommend perioperative telemetry monitoring, court recording monitor ordered by me now.
-Outpatient dose of aspirin 81 mg daily should be continued without interruption
-Outpatient dose of lisinopril 2.5 mg daily has been continued
-Outpatient dose of Toprol-XL 25 mg daily has been continued
-Outpatient dose of Crestor 40 mg daily has been continued
-Patient is mildly edematous, but no SOB or orthopnea. IVF's running at 150 ml/hr, TT communication with hospitalist attending and they are agreeable to decreasing the rate to 100 mL/hr
[2025-03-30] MEDS: CRESTOR 40 MG PO (17:12)
[2025-03-30] MEDS: LOVENOX 40 MG SC (17:12)
[2025-03-30 19:15] VITALS: BP 120/73
[2025-03-30] MEDS: DILAUDID 0.5 MG IV (21:12)
[2025-03-30 22:59] VITALS: BP 111/69
[2025-03-31] VITALS (13 sets, daily range): BP systolic 104–178; BP diastolic 61–109
[2025-03-31] MEDS: DILAUDID 0.5 MG IV ×4 (03:52→22:19)
[2025-03-31] MEDS: LR 1000 IV ×2 (06:32→21:05)
[2025-03-31 07:44] LABS: Hematocrit 39.1 % (37.0-47.0); Hemoglobin 13.2 g/dL (12.0-16.0); Mean Corp Hgb Conc. 33.8 g/dL (33.0-37.0); Mean Corpuscular Volume 84.1 fL (81.0-99.0); Nucleated Red Blood Cells % 0 %; Platelet Count 219 10^3/uL (130-400); Red Cell Dist. Width 12.4 % (11.5-14.5)
--- NOTE | 2025-03-31 08:01 | W.PN.GS2 ---
Addendum entered and electronically signed by Cristian Horn MD 03/31/25 14:41:
I was physically present and personally performed the haji portions of the surgical evaluation and/or procedure with the resident. I discussed the findings, reviewed the resident�s note, and confirmed the medical decision-making. I provided direct
supervision as required and agree with the assessment and plan as documented with the following additions/corrections:
Reviewed with patient indications for cholecystectomy and her on phone call. She is in agreement to proceed with surgery today. Medically stable and recovering from acute pancreatitis, appropriate to proceed with cholecystectomy.
Laparoscopic cholecystectomy with cholangiogram was reviewed in detail including operative technique utilizing diagrams and alternative management options. The potential benefits and risks of the procedure were reviewed in detail, including but not
limited to infectious or wound healing complications, bleeding, bile leak, injury to biliary tree, iatrogenic injury to surrounding viscera and post cholecystectomy syndrome. Reviewed the typical postoperative recovery.
Any of the patient's concerns or questions were fully addressed and informed consent was obtained.
Original Note:
Today's Communication / Plan
-
plan for laparoscopic cholecystectomy today.
Assessment / Plan
-
49F with k/h/o asthma, Diabetes, GERD, anxiety, [id number] placed 12/02biliary vs GLP-1 agonist induced pancreatitis
AFVSS
LFTs including AST, ALT are within normal level., no leukocytosis, lipase 1647 on admit
[facility] abdomen on 03/29: Cholelithiasis with no gallbladder wall thickening or biliary tract dilatation. Negative sonographic Mchugh's sign.
NPO/IVF
PRN pain meds/antiemetics
planning for today laparoscopic cholecystectomy.
Subjective Data
-
Date of Service: March 31, 2025
Overnight pt has no concern for abdominal pain, nausea, vomiting, fever, chills, she says'i am feeling much better'.
Objective Data
-
Intake and Output
03/30/25 03/31/25 04/01/25
06:59 06:59 06:59
Intake Total 1230 / 1230
Balance 1230 / 1230
Intake:
Oral fluids
IV fluids (Total) 1150 / 1150
IV piggybacks
Other:
Number of approximated SMALL 1
amounts of urine
Number of approximated MODERATE 3 1
amounts of urine
Vital Signs
Temp Pulse Resp BP Pulse Ox
97.8 F 71 16 119/67 100
03/31/25 03:30 03/31/25 03:30 03/31/25 03:30 03/31/25 03:30 03/31/25 03:30
Lab Results
03/31/25 07:23
Calcium 9.5 mg/dl (8.4-10.2) 03/30/25 07:36
Total Bilirubin 0.8 mg/dl (0.2-1.3) 03/30/25 07:36
Direct Bilirubin 0.2 mg/dl (0.0-0.4) 03/30/25 07:36
AST 19 U/L (14-36) 03/30/25 07:36
ALT 23 U/L (0-35) 03/30/25 07:36
Alkaline Phosphatase 85 U/L (38-126) 03/30/25 07:36
Total Protein 6.8 g/dl (6.3-8.2) 03/30/25 07:36
Albumin 3.9 g/dl (3.5-5.0) 03/30/25 07:36
Physical Exam
-
General: Well Developed, Well Nourished and No Apparent Distress
HEENT: Normocephalic and Anicteric
GI: Soft, Non Distended and Tender++ epigastrium
Skin: Warm and Dry
Neuro: AO x 3
Psych: Calm
Patient has a pillai catheter: No
Patient has a central line: No
[2025-03-31 08:19] LABS: ALT (SGPT) 27 U/L (0-35); AST (SGOT) 26 U/L (14-36); Albumin 4.2 g/dl (3.5-5.0); Alkaline Phosphatase 81 U/L (38-126); Blood Urea Nitrogen 8 mg/dl (7-17); Calcium 9.7 mg/dl (8.4-10.2); Carbon Dioxide 25 mmol/L (22-30); Chloride 104 mmol/L (98-107); Estimated Creatinine Clearance 123 ml/min; Glucose 75 mg/dl (70-99); Lipase 51 U/L (23-300); Potassium 4.5 mmol/L (3.5-5.1); Sodium 138 mmol/L (135-145); Total Protein 7.2 g/dl (6.3-8.2); eGFR > 60.00
[2025-03-31] MEDS: NON-FORMULARY ITEM 1 TAB PO (08:40)
[2025-03-31] MEDS: LOW STRENGTH ASPIRIN 81 MG PO (08:40)
[2025-03-31] MEDS: TOPROL XL 25 MG PO (08:40)
[2025-03-31] MEDS: ZESTRIL 2.5 MG PO (08:40)
--- NOTE | 2025-03-31 08:49 | W.PN.CARDCBS ---
Addendum entered and electronically signed by Dashawn Kirk MD 03/31/25 13:31:
I saw and examined the patient.
The Coat Feller's note was reviewed and I agree with the note.
Comment:
GEN: No distress, awake, Ox3
HEENT: supple, anicteric, mmm
LUNGS: CTA, no wheezes/rales
CV: Reg, S1/S2, 1/6 syst LSB, no gallop
ABD: soft, BS+, NT/ND
EXT: No edema
NEURO: Gross non-focal
SKIN: No rash
PLan:
Echo with preserved LVEF and no wall motion abnormality. She is stable to proceed with her gallbladder surgery.
Continue aspirin 81 mg daily, metoprolol, lisinopril, and Crestor.
EKG is nl sinus rhythm.
Original Note:
Today's Communication / Plan
-
Echo completed, EF preserved, no WMA, no significant valve disease
Stable to proceed with surgery at acceptable cardiac risk
Impression / Plan
-
PCP: Dr. Mell Ponce
Cardiology: Dr. Kirk
Impression:
Admitted with epigastric pain and acute pancreatitis 03/29/2025
Acute calculous pancreatitis
CAD
s/p [place] and MV CAD by cardiac cath 11/19/2023
s/p 2.75 mm, 2.75 mm and 2.25 mm Xience TABITHA to the mid to distal LAD and 2.25 mm Xience TABITHA to the proximal Diag-1 11/20/2023
h/o right radial artery occlusion 11/2023
DM2
Hyperlipidemia
GERD
Anxiety
Echo 11/19/23: EF 55%, mid-apical anteroseptal hypo, no signif valve dx
Echo 03/31/2025: EF 60 to 65%, no WMA, normal RV size and function, compared to echo from 11/19/2023 there are now no WMA
Plan:
-General Surgery note reviewed by me 03/31/2025 and also talked with patient who reports that she is scheduled for laparoscopic cholecystectomy 03/31/2025
-Called echo department to expedite echo and then obtained prompt reading with report reviewed and then summarized above.
-ECG from admission was previously reviewed by me and there were no acute ST changes, additionally troponin level was undetectable
-Patient can proceed with planned surgery and is at acceptable risk.
-Recommend telemetry monitoring perioperatively
-Aspirin 81 mg daily should be continued without interruption given history of CAD and PCI
-Outpatient dose of lisinopril 2.5 mg daily has been continued
-Outpatient dose of Toprol-XL 25 mg daily has been continued
-Outpatient dose of Crestor 40 mg daily has been continued
-Edema has improved with slowing of IVF's to 80 ml/hr. EF preserved and no evidence of acute volume overload
HPI: Patient came to the ER yesterday with epigastric pain and was admitted with acute pancreatitis, cardiology is consulted for the possibility of laparoscopic cholecystectomy. Patient was seen by general surgery months ago for possible
gallbladder disease and when she had seen Dr. Juan david in the office 11/2023 she even mentioned that cholecystectomy was a possibility, but patient reports that after she saw surgeon in the office they felt that cholecystectomy was not necessary.
More recently patient has been working with GI and was started on a GLP-1 for help with diabetes and weight loss and that within a week she had vomiting and ongoing symptoms that led to this admission where she was found to have acute calculous
pancreatitis. Prior to that patient denies any chest pain with activity. No REYES. Patient has a known history of CAD as outlined above. Last echo was 11/19/2023. Patient completed cardiac rehab without issue.
Progress Note - [employer]
Subjective
Date of Service: March 31, 2025
Hand swelling is much better
Objective
Labs:
03/31/25 07:23
03/31/25 07:23
Labs
Hgb 13.2 g/dL (12.0-16.0) 03/31/25 07:23
Hct 39.1 % (37.0-47.0) 03/31/25 07:23
Plt Count 219 10^3/uL (130-400) 03/31/25 07:23
Sodium 138 mmol/L (135-145) 03/31/25 07:23
Potassium 4.5 mmol/L (3.5-5.1) 03/31/25 07:23
BUN 8 mg/dl (7-17) 03/31/25 07:23
Creatinine 0.7 mg/dL (0.6-1.0) 03/31/25 07:23
Glucose 75 mg/dl (70-99) 03/31/25 07:23
Troponins
03/29/25
16:49
Troponin I < 0.012
Vital Signs and I&O:
Vital Signs
Temp Pulse Resp BP Pulse Ox
98.4 F 66 18 136/80 99
03/31/25 07:00 03/31/25 08:40 03/31/25 07:00 03/31/25 08:40 03/31/25 07:00
Vital Signs
Temp Pulse Resp BP Pulse Ox
98.4 F 66 18 136/80 99
03/31/25 07:00 03/31/25 08:40 03/31/25 07:00 03/31/25 08:40 03/31/25 07:00
Intake & Output
03/29/25 03/30/25 03/31/25 04/01/25
06:59 06:59 06:59 06:59
Intake Total 1230 / 1230
Balance 1230 / 1230
Physical Exam
Physical Exam
General: NAD. AAO x3
HEENT: EOMI
Respiratory: RA. No wheeze
Cardiac: SR on tele
--- NOTE | 2025-03-31 11:39 | W.PN.HOSP.TC ---
Today's Communication/Plan
-
Lipase WNL
pain resolved
stop IVF
For cholecystectomy
Assessment / Plan
Assessment / Plan
49yo F with PMHX of NSTEMI , CAD 2/2 multivessel disease s/p PCI (on aspirin) came with nausea and vomiting for 5 days, found acute pancreatitis. Patient has a long standing Hx of recurrent episodic vomiting and previously was seen by [facility] for
cholelithiasis and GI with scheduled colonoscopy. Also developed significant GI symptoms in 2023 after initiation of Wegovy and now had fist injection of Mounjaro 1 week before symptoms onset. Planned for cholecystectomy as pancreatitis symptoms
resolved and lipase normalized.
A/P:
#Acute calculous pancreatitis
Ca wnl
Triglycerides 113
[facility] for eval for cholecystectomy
Cardiology: repeated Echo with improvement of wall motion, EF 65%, since no worsening - as per cardio note - since no significant worsening from previous - can proceed wto the surgery with low cardiac risk
PostOP telemetry
IVF completed
advance diet as tolerated
Antiemetics
#CAD, stable
#Anxiety d/o
#HLD
cont home meds
DVT ppxlovenox
Full code
I have spent at least 53min reviewing chart, test results, communication with consultants and providing direct patient care
Anticipated Discharge: 24 - 48 hours
Subjective/Interval History
-
Date of Service: March 31, 2025
Objective Data
-
Labs:
Laboratory Results
03/31/25
07:23
WBC 6.2
Hgb 13.2
Hct 39.1
Plt Count 219
Sodium 138
Potassium 4.5
Chloride 104
Carbon Dioxide 25
BUN 8
Creatinine 0.7
Glucose 75
Calcium 9.7
Total Bilirubin 0.9
AST 26
ALT 27
Alkaline Phosphatase 81
Vital Signs:
Vital Signs
Temp Pulse Resp BP Pulse Ox
98.4 F 66 18 136/80 99
03/31/25 07:00 03/31/25 08:40 03/31/25 07:00 03/31/25 08:40 03/31/25 11:00
I&O
03/30/25 03/31/25 04/01/25
06:59 06:59 06:59
Intake Total 1230 / 1230
Balance 1230 / 1230
Review of Systems
-
History Source: Patient
All other systems: Reviewed and negative
Physical Exam
-
General: No Apparent Distress
HEENT: Normocephalic
GI: Soft, Nontender and Nondistended
Neuro: Awake, Alert, Oriented and AO x 3
Psych: Calm
[2025-03-31] MEDS: LR IV (11:40)
--- NOTE | 2025-03-31 14:41 | W.SUR.PREOP ---
Pre-Operative Surgical Note
-
I have examined this patient prior to the performance of the scheduled procedure.
The patient's condition is unchanged from the time of the current History and
Physical and the patient is able to undergo the scheduled procedure.
--- NOTE | 2025-03-31 15:17 | CM ---
Pt preop for cholecystectomy today.
She has good family support.
Offered VN she declined need at discharge.
Pt hopes for private room after OR so she can sleep.
RN told pt may go to 2S postop.
PLAN Home no needs
--- NOTE | 2025-03-31 16:30 | W.IMMPOSTOP ---
Addendum entered and electronically signed by Cristian Horn MD 04/01/25 16:18:
#[id number]
Original Note:
Surgical Immed Post Op Note
-
Primary Surgeon: Cristian Horn MD
Assisting Surgeon: SANJU Barger
Pre-op Diagnosis: Gallstone pancreatitis
Post-op Diagnosis: Gallstone pancreatitis
Procedure Performed: Laparoscopic cholecystectomy with cholangiogram
Anesthesia Type: GETA +0.25% Marcaine
Specimen / Cultures: Gallbladder/none
Estimated Blood Loss: 6 mL
Complications: None immediate
Operative Findings: Tensely distended gallbladder with few adhesions. Intraoperative cholangiogram normal. Cystic artery and branches controlled with clips. Cystic duct controlled with Hemoclip. Gallbladder extracted at 12 mm trocar site.
Plan: Routine postoperative care advance to low-fat diet as tolerated.
[2025-03-31] MEDS: ZOFRAN 4 MG IV (17:13)
[2025-03-31] MEDS: COMPAZINE 5 MG IV (17:22)
[2025-03-31] MEDS: DILAUDID 0.25 MG IV ×2 (17:42→17:49)
[2025-03-31] MEDS: CRESTOR PO (19:22)
[2025-03-31] MEDS: LOVENOX 40 MG SC (21:04)
[2025-04-01] MEDS: DILAUDID 0.5 MG IV (02:53)
[2025-04-01 03:00] VITALS: BP 142/81
--- NOTE | 2025-04-01 07:01 | W.PN.GS2 ---
Addendum entered and electronically signed by Jose Solares MD 04/01/25 12:17:
I saw and examined the patient independently.
The resident's documentation was reviewed and I agree with the note, assessment and plan except where noted below.
Comment: Postoperative day 1 laparoscopic cholecystectomy. Doing well, expected postoperative course.
Doing well, dispo planning.
Discharge instructions updated.
Original Note:
Today's Communication / Plan
-
advanced to low fat diet
Assessment / Plan
-
49F with k/h/o asthma, Diabetes, GERD, anxiety, [id number] placed 12/02biliary vs GLP-1 agonist induced pancreatitis admitted for abdominal pain and diagnosed with cholelithiasis with elevated lipase:
#S/p POD 1 laparoscopic cholecystectomy due to cholelithiasis:
Afebrile, vitals are stable
Intra Op findings: Tensely distended gallbladder with few adhesions and IntraOp cholangiogram normal.
Currently on low-fat diet.
Plan-discharge the patient with low-fat diet advised, recommended to left less than 20 pounds weight for 2 weeks.
Follow-up in surgery office if new concern for discharge, bleeding at incision site.
Subjective Data
-
Date of Service: April 01, 2025
Overnight pt feels better with no abdominal pain, nausea, vomiting, fever, chills, dysuria, chest pain, palpitation. Patient passed flatus and ambulating.
Objective Data
-
Intake and Output
03/31/25 04/01/25 04/02/25
06:59 06:59 06:59
Intake Total 200 / 200
Balance 200 / 200
Intake:
Oral fluids 50 / 50
IV fluids (Total) 150 / 150
normasol 150 / 150
Other:
Number of approximated SMALL 1
amounts of urine
Number of approximated MODERATE 1 2
amounts of urine
Vital Signs
Temp Pulse Resp BP Pulse Ox
97.8 F 85 16 142/81 96
04/01/25 03:00 04/01/25 03:00 04/01/25 03:00 04/01/25 03:00 04/01/25 03:00
Lab Results
03/31/25 07:23
03/31/25 07:23
Calcium 9.7 mg/dl (8.4-10.2) 03/31/25 07:23
Total Bilirubin 0.9 mg/dl (0.2-1.3) 03/31/25 07:23
Direct Bilirubin 0.2 mg/dl (0.0-0.4) 03/30/25 07:36
AST 26 U/L (14-36) 03/31/25 07:23
ALT 27 U/L (0-35) 03/31/25 07:23
Alkaline Phosphatase 81 U/L (38-126) 03/31/25 07:23
Total Protein 7.2 g/dl (6.3-8.2) 03/31/25 07:23
Albumin 4.2 g/dl (3.5-5.0) 03/31/25 07:23
Physical Exam
-
General: No Apparent Distress
HEENT: Normocephalic
Respiratory: Clear to Auscultation
GI: Soft, Nontender and Nondistended, laparoscopic incision site are clear
Musculoskeletal: No Clubbing, No Cyanosis and No Edema
Neuro: Awake, Alert, Oriented and AO x 3
Psych: Calm
Patient has a pillai catheter: No
Patient has a central line: No
[2025-04-01 07:51] VITALS: BP 129/72
[2025-04-01] MEDS: NON-FORMULARY ITEM 1 TAB PO (08:05)
[2025-04-01] MEDS: LOW STRENGTH ASPIRIN 81 MG PO (08:05)
[2025-04-01] MEDS: TOPROL XL 25 MG PO (08:06)
[2025-04-01] MEDS: ZESTRIL 2.5 MG PO (08:07)
[2025-04-01] MEDS: LR 1000 IV (08:19)
[2025-04-01] MEDS: ROXICODONE 5 MG PO (08:25)
--- NOTE | 2025-04-01 10:01 | W.PN.HOSP.TC ---
Today's Communication/Plan
-
dc
Assessment / Plan
Assessment / Plan
49yo F with PMHX of NSTEMI , CAD 2/2 multivessel disease s/p PCI (on aspirin) came with nausea and vomiting for 5 days, found acute pancreatitis. Patient has a long standing Hx of recurrent episodic vomiting and previously was seen by [facility] for
cholelithiasis and GI with scheduled colonoscopy. Also developed significant GI symptoms in 2023 after initiation of Wegovy and now had fist injection of Mounjaro 1 week before symptoms onset. Cholecystectomy done on 03/31/25 with negative
cholangiogram as pancreatitis symptoms resolved and lipase normalized. Able to tolerate the food, no new symptoms overnight after surgery. Medically stable to be d/c home
A/P:
#Acute calculous pancreatitis
Ca wnl
Triglycerides 113
[facility] for eval for cholecystectomy
Cardiology: repeated Echo with improvement of wall motion, EF 65%, since no worsening - as per cardio note - since no significant worsening from previous - can proceed wto the surgery with low cardiac risk
PostOP telemetry
IVF completed
advance diet as tolerated
Antiemetics
#CAD, stable
#Anxiety d/o
#HLD
cont home meds
DVT ppxlovenox
Full code
I have spent at least 36min reviewing chart, test results, communication with consultants and providing direct patient care
Anticipated Discharge: Today
Subjective/Interval History
-
Date of Service: April 01, 2025
Objective Data
-
Vital Signs:
Vital Signs
Temp Pulse Resp BP Pulse Ox
98.2 F 78 16 129/72 97
04/01/25 07:51 04/01/25 08:06 04/01/25 07:51 04/01/25 08:06 04/01/25 07:51
I&O
03/31/25 04/01/25 04/02/25
06:59 06:59 06:59
Intake Total 200 / 200
Balance 200 / 200
Review of Systems
-
History Source: Patient
All other systems: Reviewed and negative
Abdomen/GI: Reports Abdominal Pain (diffuse mild)
Physical Exam
-
General: No Apparent Distress
HEENT: Normocephalic
Respiratory: Clear to Auscultation
GI: Soft, Nontender and Nondistended
Musculoskeletal: No Clubbing, No Cyanosis and No Edema
Neuro: Awake, Alert, Oriented and AO x 3
Psych: Calm
--- NOTE | 2025-04-01 10:08 | W.DCSUMMARY ---
Discharge Summary
Discharge Data
Date of Admission: 03/29/25
Date of Discharge: 04/01/25
-
Pending Results: No
Hospital Course
49yo F with PMHX of NSTEMI , CAD 2/2 multivessel disease s/p PCI (on aspirin) came with nausea and vomiting for 5 days, found acute pancreatitis. Patient has a long standing Hx of recurrent episodic vomiting and [facility] with scheduled colonoscopy. Also developed significant GI symptoms in 2023 after initiation of Wegovy and now had fist injection of Mounjaro 1 week before symptoms onset. Cholecystectomy done on 03/31/25 with negative
cholangiogram as pancreatitis symptoms resolved and lipase normalized. Able to tolerate the food, no new symptoms overnight after surgery. Medically stable to be d/c home
I have spent at least 36min reviewing chart, test results, communication with consultants and providing direct patient care
Patient was managed for:
#Acute calculous pancreatitis
#CAD, stable
#Anxiety d/o
#HLD
Discharge Plan
-
Patient Disposition: Home (Routine Discharge)
Discharge Diagnosis/Procedures: Gallstone mediated pancreatitis. Laparoscopic cholecystectomy
Condition: Good
Diet: Low Fat
Additional Diets: Smaller meals initially after surgery his abdominal bloating and distention may be common for the first few days
Activity: No strenuous activity
Driving Restrictions: No driving for 24 hours
Bathing Restrictions: OK to Shower
Wound Care: Glue at surgical sites typically peels off in 2 to 3 weeks
Activity Restrictions/Additional Instructions:
PM General Surgery
Cristian Horn MD FACS
[facility]
[address], [address]
[place] [address]
[phone]
Post-Operative Instructions for Gallbladder Surgery
The incision sites are sealed with a surgical glue dressing.� It is safe to shower at any time after surgery when the glue is dry.� Let shower water run over the incisions and then pat dry.
Glue dressing typically peels off in 2-3 weeks.
Abdominal/incisional pain and discomfort, shoulder/scapular pain, bloating, and mild nausea, as well as bruising/stiffness and swelling at the incision sites are common after surgery.� If felt to be excessive, notify us.
Please start postoperative pain management using over the counter medications such as Tylenol and Ibuprofen, per instructions on the bottle, as long as there are no medical reasons why you cannot take these medications.
Ice the incisions sites for 20 minutes every hour or so to help with postoperative incisional pain and reduce postoperative surgical site swelling.� Take care NOT to get an ice burn on the skin surface.
A warm heating pad is often helpful to alleviate shoulder/scapular back pains after laparoscopic procedures.� This pain typically dissipates 24-72hrs post op.
Transition to a low fat diet as tolerated after surgery if not experiencing postoperative nausea or significant bloating/distention.� Some fatty food intolerance may occur shortly after surgery (cramps,bloating, nausea,diarrhea with fat intake).
Constipation is common following surgery and postoperative narcotic use.� May use a stool softener such as Colace (100 mg 2x day) to prevent constipation
If no BM 24hrs after surgery, recommend starting daily Miralax
If no BM in 24-48hrs after starting Miralax --> recommend then using a dose of magnesium citrate or milk of magnesia with a Senokot tablet to help alleviate post operative constipation as long as there is no nausea/vomiting and passing gas.
Resume all preoperative medications as directed on the discharge medication reconciliation paper.
Do not drive or drink alcohol for 24 hrs after having anesthesia -OR- while taking narcotic pain medications.
Resume regular daily light activities, such as walking, standing and going up/down stairs as tolerated within 24hrs of surgery.� Please refrain from lifting over 15-20 lbs or strenuous exercise until postoperative follow up visit &/or approximately
3-4 weeks.�
Call the office with a fever above 101� F, nausea with vomiting, severe abdominal pain, yellowing of skin or eyes, spreading redness and drainage from incision sites or with any concerns/questions.
If not arranged prior to surgery, please call the office to schedule or confirm your postoperative surgical follow-up office visit with Dr. Horn.
Referrals:
Mell Ponce MD [Family Provider, Family Practice]
Cristian Horn MD [Active, Surgical] - in two to three weeks
Prescriptions:
New
sennosides-docusate sodium 8.6-50 mg Tablet
1 tab PO BIDPRN PRN (Reason: constipation) Qty: 10 0RF
oxycodone 5 mg Tablet
5 mg PO Q4HPRN PRN (Reason: severe pain when cici PO) Qty: 9 0RF
Pristiq 50 Mg
1 tab PO DAILY Qty: 0 0RF
Continued
tetrahydrozoline [Visine] 0.05 % Drops
1 - 2 drp BOTH EYES DAILYPRN PRN (Reason: dry eyes)
albuterol sulfate 90 mcg/actuation Hfa Aerosol Inhaler
2 puff INHALATION R Q4HPRN PRN (Reason: sob/wheezing)
Medical Marijuana
20 inh inhalation QPMPRN PRN (Reason: anxiety)
Medical Marijuana
1 gummy PO HSPRN PRN (Reason: anxiety)
prasugrel HCl 10 mg Tablet
10 mg PO DAILY Qty: 90 3RF
atorvastatin 40 mg Tablet
40 mg PO QPM Qty: 90 3RF
aspirin [Children's Aspirin] 81 mg Tablet,Chewable
81 mg PO DAILY Qty: 90 3RF
nitroglycerin 0.4 mg Tablet, Sublingual
0.4 mg sublingual [id number] PRN (Reason: chest pain) Qty: 25 2RF
metoprolol succinate 25 mg Tablet Extended Release 24 Hr
25 mg PO DAILY Qty: 90 3RF
lisinopril 2.5 mg tablet
2.5 mg PO DAILY Qty: 90 3RF
Discontinued
ibuprofen [Motrin IB] 200 mg Tablet
400 mg PO DAILYPRN PRN (Reason: mild pain)
acetaminophen-codeine 300-15 mg tablet
1 tab PO Q4H PRN (Reason: moderate-severe pain) Qty: 10 0RF
oxycodone 5 mg tablet
5 mg PO Q6H PRN (Reason: Pain) Qty: 8 0RF
doxycycline hyclate 100 mg capsule
100 mg PO BID Qty: 13 0RF
Discharge Orders:
Discharge Patient (As Directed); Ordered 04/01/25
Ordered By: Himanshu Nelson
Discharge Date and Time
Print Language: LITHUANIAN
--- NOTE | 2025-04-01 10:12 | CM ---
entered order for discharge.
Postop Choly.
Tolerating po meals.
will drive her home.
Offered VN she declined need.
PLAN Home no needs
[2025-04-01 11:17] VITALS: BP 120/75
[2025-04-01] MEDS: TORADOL 15 MG IV (12:01)
== END 2025-04-01 13:17 | disposition home or self-care (01) | DRG 419 ==
LOC: 3 WEST ACU 21:32
PROVIDERS: Radiology Diagnostic Radiology; Student in an Organized Health Care Education/Training Program; Surgery; ADMITTING PHYSICIAN Internal Medicine; ATTENDING PHYSICIAN Internal Medicine; CONSULT PHYSICIAN Nuclear Medicine Nuclear Cardiology; CONSULT PHYSICIAN Surgery; EMERGENCY PHYSICIAN Emergency Medicine; FAMILY PHYSICIAN Family Medicine
PROC: BF131ZZ Fluoroscopy of Gallbladder and Bile Ducts using Low Osmolar Contrast (ICD-10-PCS; 2025-03-31)
PROC: 0FT44ZZ Resection of Gallbladder, Percutaneous Endoscopic Approach (ICD-10-PCS; 2025-03-31)
DX: K85.10 Biliary acute pancreatitis without necrosis or infection (principal); F41.9 Anxiety disorder, unspecified; I10 Essential (primary) hypertension; K21.9 Gastro-esophageal reflux disease without esophagitis; K80.20 Calculus of gallbladder without cholecystitis without obstruction; I25.10 Atherosclerotic heart disease of native coronary artery without angina pectoris; K82.8 Other specified diseases of gallbladder; K66.0 Peritoneal adhesions (postprocedural) (postinfection); E11.51 Type 2 diabetes mellitus with diabetic peripheral angiopathy without gangrene; E11.36 Type 2 diabetes mellitus with diabetic cataract; E78.00 Pure hypercholesterolemia, unspecified; J45.998 Other asthma; Z79.85 Long-term (current) use of injectable non-insulin antidiabetic drugs; Z95.5 Presence of coronary angioplasty implant and graft; I25.2 Old myocardial infarction; Z88.8 Allergy status to other drugs, medicaments and biological substances; Z79.82 Long term (current) use of aspirin; Z87.891 Personal history of nicotine dependence
CPT/HCPCS: 74300; 76000; 76700; 80053; 80061; 82077; 82150; 82248; 83690; 84484; 84703; 85025; 85027; 88304; 93005; 93306; 96360; 99285

== ENCOUNTER → 2025-04-15 13:35 | Outpatient (REF) | payer BC, SELFPAY ==
[2025-04-15 13:55] LABS: Hematocrit 36.3 % (37.0-47.0); Hemoglobin 12.2 g/dL (12.0-16.0); Mean Corp Hgb Conc. 33.6 g/dL (33.0-37.0); Mean Corpuscular Volume 83.8 fL (81.0-99.0); Nucleated Red Blood Cells % 0 %; Platelet Count 300 10^3/uL (130-400); Red Cell Dist. Width 12.8 % (11.5-14.5)
[2025-04-15 14:22] LABS: ALT (SGPT) 55 U/L (0-35); AST (SGOT) 49 U/L (14-36); Albumin 4.3 g/dl (3.5-5.0); Alkaline Phosphatase 130 U/L (38-126); Blood Urea Nitrogen 15 mg/dl (7-17); Calcium 9.4 mg/dl (8.4-10.2); Carbon Dioxide 25 mmol/L (22-30); Chloride 102 mmol/L (98-107); Glucose 124 mg/dl (70-99); Lipase 232 U/L (23-300); Potassium 4.5 mmol/L (3.5-5.1); Sodium 135 mmol/L (135-145); Total Protein 7.2 g/dl (6.3-8.2); eGFR > 60.00
== END ==
LOC: REG 13:35
PROVIDERS: ATTENDING PHYSICIAN Surgery; FAMILY PHYSICIAN Family Medicine
DX: R10.13 Epigastric pain (principal); Z90.49 Acquired absence of other specified parts of digestive tract
CPT/HCPCS: 36415; 80053; 83690; 85025

== ENCOUNTER → 2025-05-05 07:38 | Outpatient (REF) | payer BC, SELFPAY | LOC: MRI 07:38 | PROVIDERS: ATTENDING PHYSICIAN Internal Medicine Gastroenterology; FAMILY PHYSICIAN Family Medicine | DX: R10.11 Right upper quadrant pain (principal) | CPT/HCPCS: 74183; A9575 ==

== ENCOUNTER 2025-05-24 08:33 | Day surgery (SDC) | payer BC, SELFPAY ==
[2025-05-24 08:30] VITALS: BMI 33.7
[2025-05-24 08:35] VITALS: BP 140/82
[2025-05-24 08:47] VITALS: BMI 33.7
[2025-05-24 09:03] LABS: Glucose - Point of Care 140 mg/dl (70-99)
[2025-05-24 10:39] VITALS: BP 115/79
[2025-05-24 10:45] VITALS: BP 116/84
[2025-05-24 11:00] VITALS: BP 132/83
== END 2025-05-24 11:14 | disposition home or self-care (01) ==
LOC: SDS 08:33
PROVIDERS: ATTENDING PHYSICIAN Internal Medicine Gastroenterology
DX: Z12.11 Encounter for screening for malignant neoplasm of colon (principal); K57.30 Diverticulosis of large intestine without perforation or abscess without bleeding; K62.1 Rectal polyp; K44.9 Diaphragmatic hernia without obstruction or gangrene; K31.89 Other diseases of stomach and duodenum; R10.13 Epigastric pain
CPT/HCPCS: 45380; 43239; 82962; 88305; 88342

== ENCOUNTER 2025-06-07 00:54 | Emergency (ER) | payer BC, SELFPAY ==
[2025-06-07 00:56] VITALS: BP 170/98
[2025-06-07 01:02] VITALS: BMI 33.2
[2025-06-07 01:31] VITALS: BP 142/93
[2025-06-07] MEDS: NSS 1000 IV ×2 (01:33→03:01)
[2025-06-07] MEDS: ZOFRAN 4 MG IV ×2 (01:33→04:32)
--- NOTE | 2025-06-07 01:44 | ED.GENMED ---
History of Present Illness
General
Chief Complaint: Abdominal Symptoms
Time Seen by Provider: 06/07/25 01:00
History of Present Illness
History of Present Illness:
50-year-old female with history of CAD status post stenting, hypertension, hyperlipidemia presenting to the emergency department for nausea and vomiting Mounjaro shot 4 days ago. The day after the injection, immediately started to have vomiting.
She has since not been able to tolerate any p.o. Denies any significant abdominal pain. Notes in March she had started Mounjaro, however after 1 injection, got pancreatitis subsequently had a gallbladder removed. Denies chest pain, difficulty
breathing, fever. Denies additional abdominal surgeries. Denies additional acute medical complaints
Past History
Past History
ED Past Medical History: Asthma, GERD and LA
ED Past Surgical History: Cardiac, Orthopedic and Other
Social History
Tobacco: Non-smoker
Alcohol: None
Drug: None
Personal:
Living: with family
Employment: Other
Family History
Family History: Negative Early CAD
Phy Exam
Physical Exam
Physical Exam:
General: Well-appearing, no clinical signs of dehydration, nontoxic and in no acute distress
HEENT: protecting airway
Neck: appears supple
CV: Normal heart rate, regular rhythm
Resp: No accessory muscle use, no increased work of breathing, lungs clear to auscultation bilaterally
Abd: Soft and non-distended, no tenderness to palpation
Extremities: No deformities, no swelling
Neuro: alert, no focal neurologic deficit
: deferred
Rectal: deferred
Psych: Normal affect
Skin: Intact
Course
Orders/Labs/Results
Orders:
Orders
06/07/25 01:30
HCG, Urine Qualitative Screen Urgent
Urinalysis Reflex To Culture Urgent
0.9% Sodium Chloride 1000 ml [Nss] 1,000 ml IV BOLUS
Ondansetron Injectable [Zofran] 4 mg IV NOW STA
Test Result ONCE
06/07/25 01:34
Complete Blood Count/With Diff Urgent
Comprehensive Metabolic Panel Urgent
Lipase Urgent
06/07/25 02:35
Acetaminophen [Tylenol] 1,000 mg PO NOW STA
06/07/25 03:00
0.9% Sodium Chloride 1000 ml [Nss] 1,000 ml IV BOLUS
06/07/25 04:28
Ondansetron Injectable [Zofran] 4 mg IV NOW STA
Abnormal Lab Results
06/07/25
01:34
WBC 13.3 H 10^3/uL
(4.8-10.8)
Absolute Neuts (auto) 11.3 H 10^3/uL
(1.4-6.5)
Neutrophils % 84.9 H %
(42.2-75.2)
Lymphocytes % 12.4 L %
(20.5-51.1)
Glucose 184 H mg/dl
(70-99)
Total Bilirubin 1.5 H mg/dl
(0.2-1.3)
AST 40 H U/L
(14-36)
ALT 38 H U/L
(0-35)
Alkaline Phosphatase 133 H U/L
(38-126)
Total Protein 8.8 H g/dl
(6.3-8.2)
Albumin 5.2 H g/dl
(3.5-5.0)
06/07/25 01:34
06/07/25 01:34
Vital Signs
Initial and Last Documented VS:
Initial Vital Signs
Pulse Resp BP Pulse Ox
112 28 170/98 100
06/07/25 00:56 06/07/25 00:56 06/07/25 00:56 06/07/25 00:56
Last Documented Vital Signs
Pulse Resp BP Pulse Ox
87 16 141/84 97
06/07/25 04:00 06/07/25 04:00 06/07/25 04:00 06/07/25 04:00
MDM/Problems Addressed
MDM/Problems Addressed:
50-year-old female with history of CAD status post stenting, hypertension, hyperlipidemia presenting for nausea and vomiting after taking Mounjaro. Vital signs on arrival significant for high blood pressure which improved without intervention.
On exam patient is resting comfortably, no acute distress. She does have some dry mucous membranes. Otherwise, unremarkable cardiac, pulmonary, abdominal exam. Distal tenderness. Without concern for serious intra-abdominal process or infection.
No present indication for advanced imaging of the abdomen. Ultimately suspect medication reaction from Mounjaro. Will treat patient with IV fluids and Zofran and reassess for improvement. Will also send laboratory analysis
04:30 -patient's labs are relatively unremarkable. Mild leukocytosis, minimal elevation of LFTs. On reassessment of the abdomen, no focal tenderness. Patient notes improvement of symptoms after 2 L of fluids and Zofran, able to tolerate water and
crackers. Feel stable for discharge with continued outpatient supportive therapy. Patient notes that she is no longer going to use Mounjaro. Advise follow-up with her doctor. Return precautions discussed and patient verbalized understanding
*Pulse Oximetry
SaO2: 94
Patient hypoxic: no
*Critical Care Note
Total Time (30-74mins, 75-104mins- exclusive of procedures): Not Applicable
ED Attending Note
-
Portions of this chart may have been created with voice recognition software.� Occasional wrong word or��sound alike� substitutions may have occurred due to the inherent limitations of voice recognition software.
Discharge Plan
Departure
Prescriptions:
No Action
tetrahydrozoline [Visine] 0.05 % Drops
1 - 2 drp BOTH EYES DAILYPRN PRN (Reason: dry eyes)
albuterol sulfate 90 mcg/actuation Hfa Aerosol Inhaler
2 puff INHALATION R Q4HPRN PRN (Reason: sob/wheezing)
Medical Marijuana
20 inh inhalation QPMPRN PRN (Reason: anxiety)
Medical Marijuana
1 gummy PO HSPRN PRN (Reason: anxiety)
aspirin [Children's Aspirin] 81 mg Tablet,Chewable
81 mg PO DAILY Qty: 90 3RF
nitroglycerin 0.4 mg Tablet, Sublingual
0.4 mg sublingual [id number] PRN (Reason: chest pain) Qty: 25 2RF
metoprolol succinate 25 mg Tablet Extended Release 24 Hr
25 mg PO DAILY Qty: 90 3RF
lisinopril 2.5 mg tablet
2.5 mg PO DAILY Qty: 90 3RF
sennosides-docusate sodium 8.6-50 mg Tablet
1 tab PO BIDPRN PRN (Reason: constipation) Qty: 10 0RF
rosuvastatin 40 mg Tablet
40 mg PO HS
Pristiq 50 Mg
50 mg PO DAILY
pantoprazole 20 mg Tablet,Delayed Release (Dr/Ec)
20 mg PO HS
metformin 1,000 mg Tablet Extended Release 24hr
1,000 mg PO DAILY
Referrals:
Mell Ponce MD [Family Provider, Family Practice]
Interventions
Interventions:
*Risk Screen - Suicide Last Done: 06/07/25 00:56
*General Assessment Last Done: 06/07/25 01:04
*Neglect/Abuse Screening Last Done: 06/07/25 00:56
*ED- Fall Risk Assessment Last Done: 06/07/25 01:04
*ED COVID-19 Vaccine History Last Done: 06/07/25 01:04
*ED Influenza Vaccine History Last Done: 06/07/25 01:04
AU-Wxgiuv-Ghakbbqyon Assessment Last Done: 06/07/25 01:06
Discharge Date and Time
Print Language: BRAZILIAN
[2025-06-07 01:47] LABS: Hematocrit 41.3 % (37.0-47.0); Hemoglobin 14.0 g/dL (12.0-16.0); Mean Corp Hgb Conc. 33.9 g/dL (33.0-37.0); Mean Corpuscular Volume 82.4 fL (81.0-99.0); Nucleated Red Blood Cells % 0 %; Platelet Count 328 10^3/uL (130-400); Red Cell Dist. Width 13.2 % (11.5-14.5)
[2025-06-07 02:00] VITALS: BP 123/73
[2025-06-07 02:14] LABS: ALT (SGPT) 38 U/L (0-35); AST (SGOT) 40 U/L (14-36); Albumin 5.2 g/dl (3.5-5.0); Alkaline Phosphatase 133 U/L (38-126); Blood Urea Nitrogen 16 mg/dl (7-17); Calcium 10.1 mg/dl (8.4-10.2); Carbon Dioxide 22 mmol/L (22-30); Chloride 99 mmol/L (98-107); Estimated Creatinine Clearance 122 ml/min; Glucose 184 mg/dl (70-99); Lipase 69 U/L (23-300); Potassium 4.5 mmol/L (3.5-5.1); Sodium 138 mmol/L (135-145); Total Protein 8.8 g/dl (6.3-8.2); eGFR > 60.00
[2025-06-07] MEDS: TYLENOL 1000 MG PO (02:57)
[2025-06-07 03:00] VITALS: BP 132/85
[2025-06-07 04:00] VITALS: BP 141/84
== END 2025-06-07 05:00 | disposition home or self-care (01) ==
LOC: EMR 00:54
PROVIDERS: EMERGENCY PHYSICIAN Student in an Organized Health Care Education/Training Program; FAMILY PHYSICIAN Family Medicine
DX: R11.2 Nausea with vomiting, unspecified (principal); T38.3X5A Adverse effect of insulin and oral hypoglycemic [antidiabetic] drugs, initial encounter; D72.829 Elevated white blood cell count, unspecified; I25.10 Atherosclerotic heart disease of native coronary artery without angina pectoris; I10 Essential (primary) hypertension; E78.5 Hyperlipidemia, unspecified; I25.2 Old myocardial infarction; J45.909 Unspecified asthma, uncomplicated; K21.9 Gastro-esophageal reflux disease without esophagitis; Z79.82 Long term (current) use of aspirin; Z95.5 Presence of coronary angioplasty implant and graft
CPT/HCPCS: 99284; 96374; 96376; 96361 ×2; 80053; 83690; 85025